=== PATIENT | male | born 1980 | race African-American/Black ===

== ENCOUNTER 2017-04-06 18:29 | Observation (INO) | payer MEDICARE, OTHER ==
[2017-04-06 19:35] LABS: PTT 33.7 SEC (22.9-36.1); Prothrombin Time 13.4 SEC (12.0-14.7)
[2017-04-06 19:39] LABS: #Lymphocytes 2.5 thou/uL (1.20-3.40); #Monocytes 0.6 thou/uL (0.11-0.59); #Neutrophils 4.7 thou/uL (1.40-6.50); %Basophils 0.2 % (0.0-1.0); %Eosinophils 0.5 % (0.0-10.0); Hematocrit 43.8 % (42.0-52.0); Mean Platelet Volume 9.7 fL (7.4-10.4); Red Blood Cell (RBC) Count 4.81 mill/uL (4.70-6.10); White Blood Cell (WBC) Count 7.9 thou/uL (4.8-10.8)
[2017-04-06 19:44] LABS: Lactic Acid - Sepsis 1.3 mmol/L (0.5-2.2)
[2017-04-06 19:51] LABS: Troponin I Less than 0.010 ng/mL (< 0.028)
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
[2017-04-06 20:15] LABS: ALT (SGPT) 32 U/L (8-55); AST (SGOT) 22 U/L (5-34); Alkaline Phosphatase 133 U/L (40-150); Anion Gap 13 mmol/L (10-20); BUN (Urea Nitrogen) 8 mg/dL (8.9-20.6); Bilirubin, Total 0.5 mg/dL (0.2-1.2); Calc. Creatinine Clearance 0 mL/min (70-130); Calcium 9.2 mg/dL (7.8-10.44); Carbon Dioxide 28 mmol/L (22-29); Chloride 101 mmol/L (98-107); Estimated GFR-MDRD Greater than 90; Protein, Total 8.1 g/dL (6.0-8.3)
[2017-04-06] MEDS ORDERED: HYDROcodone/Acetaminophen 10/325 mg Tablet ONE (21:05)
[2017-04-06] MEDS ORDERED: Dextrose 5% in Water 1,000 ML IV PRN (22:11)
[2017-04-06] MEDS ORDERED: Primidone 250 MG TAB PO SCH (22:11)
[2017-04-06] MEDS ORDERED: Ibuprofen 800 MG TAB PO PRN (22:11)
[2017-04-06] MEDS ORDERED: traMADol HCl 50 MG TAB PO PRN (22:11)
[2017-04-06] MEDS ORDERED: carBAMazepine SR 300 mg Capsule PO SCH (22:11)
[2017-04-06] MEDS ORDERED: Dextrose 50% Abboject 50 ML SYRINGE SLOW IVP PRN (22:11)
[2017-04-06] MEDS ORDERED: Ondansetron HCl/PF 4 MG/2 ML Vial IVP PRN (22:11)
[2017-04-06] MEDS ORDERED: Ondansetron ODT 4 MG TAB PO PRN (22:11)
[2017-04-06] MEDS: Acetaminophen 500 MG TAB PO SCH (22:52)
[2017-04-06] MEDS: Famotidine 20 MG TAB PO SCH (23:02)
[2017-04-07 00:16] VITALS: BMI 34.2
[2017-04-07] MEDS: Acetaminophen 500 MG TAB PO SCH ×2 (03:55→09:17)
[2017-04-07] MEDS ORDERED: Calcium Carbonate 500 MG ChewTAB PO PRN (04:13)
[2017-04-07 06:44] LABS: #Lymphocytes 1.9 thou/uL (1.20-3.40); #Monocytes 0.6 thou/uL (0.11-0.59); #Neutrophils 3.7 thou/uL (1.40-6.50); %Basophils 0.3 % (0.0-1.0); %Eosinophils 0.1 % (0.0-10.0); %Lymphocytes 30.4 % (21.0-51.0); Mean Platelet Volume 7.6 fL (7.4-10.4); Red Blood Cell (RBC) Count 4.29 mill/uL (4.70-6.10); White Blood Cell (WBC) Count 6.2 thou/uL (4.8-10.8)
[2017-04-07] MEDS ORDERED: Primidone 250 MG TAB PO SCH (07:00)
[2017-04-07] MEDS ORDERED: carBAMazepine SR 300 mg Capsule PO SCH ×2 (07:00→09:00)
[2017-04-07] MEDS ORDERED: CARBAMAZEPINE PO SCH (09:00)
[2017-04-07] MEDS: Famotidine 20 MG TAB PO SCH (09:16)
[2017-04-07] MEDS: Primidone 250 MG TAB PO SCH ×2 (09:20→12:04)
[2017-04-07 12:29] VITALS: BP 163/95; TEMP 98.6
--- OUTSIDE RECORDS SUMMARY | 2017-04-07 23:31 | XMS | Continuity of Care Document ---
:1980 Author Organization [facility] Care Team Providers Name Role Phone [facility] Primary Care Physician Unavailable Insurance Providers Payer Name Policy Number Subscriber Name Relationship MEDICARE [id number] RAZIA GLASS SELF/SAME PATIENT Advance Directives Directive Response Recorded Date/Time Advance Directive? N 11/12/15 2:34am Living Will? N 11/12/15 2:34am Health Care Proxy? N 11/12/15 2:34am Healthcare Power of Galley Boy? N 11/12/15 2:34am Is the patient an Organ Donor? N 11/12/15 2:34am Chief Complaint and Reason for Visit Reason for Visit CHEST PAIN,LEFT ARM NUMBESS Problems Active Medical Problems Problem Onset Date Recorded Date Status Seizure Unknown 02/03/14 Active Costochondral pain Unknown 04/02/14 Active Chest pain Unknown 04/11/14 Active Seizure disorder Unknown 05/23/14 Active Chest wall pain Unknown 07/16/14 Active Musculoskeletal pain Unknown 07/16/14 Active Atypical chest pain Unknown 09/15/14 Active Anterior chest wall pain Unknown 02/05/15 Active Non compliance w medication regimen Unknown 05/23/15 Active Pain due to dental caries Unknown 05/23/15 Active Seizure Unknown 06/12/15 Active Heart failure, diastolic, with acute decompensation Unknown 07/28/15 Active Pleural effusion, left Unknown 07/28/15 Active Acute kidney injury superimposed on CKD Unknown 07/28/15 Active Pleuritic chest pain Unknown 07/28/15 Active Pain, dental Unknown 10/30/15 Active Fractured tooth Unknown 10/30/15 Active Medications Current Home Medications Medication Dose Units Route Directions Days/Qty Instructions Start Date ACETAMINOPHEN/COD 1 TAB PO EVERY FOUR HOURS 20 07/28/15 300/30MG TAB NEEDED PRN (TYLENOL #3) 300 PAIN MG/30 MG TAB Amoxicillin 875 MG PO TWICE A DAY 20 10/30/15 Trihydrate (899; 2099) (Amoxicillin 875 MG TAB) 875 MG TAB Carbamazepine 900 MG PO EVERY DAY @ 0900 (CARBATROL 300 MG CAP) 300 MG CAP Carbamazepine 600 MG PO AT BEDTIME (2099) (CARBATROL 300 MG CAP) 300 MG CAP IBUPROFEN 800 MG PO EVERY EIGHT HOURS 30 07/28/15 (IBUPROFEN 800 MG NEEDED PRN TAB) 800 MG TAB PAIN AND INFLAMMATION IBUPROFEN 800 MG PO EVERY EIGHT HOURS 60 10/30/15 (IBUPROFEN 800 MG NEEDED PRN TAB) 800 MG TAB PAIN AND INFLAMMATION IBUPROFEN (MOTRIN 800 MG PO EVERY EIGHT HOURS 20 10/16/15 800 MG TAB) 800 MG NEEDED PRN TAB PAIN AND INFLAMMATION Primidone 250 MG OR THREE TIME A (PRIMIDONE) 250 MG DAY() TAB Past Home Medications Medication Directions Ordered Status Acetaminophen W/Codeine #3 EVERY FOUR HOURS PRN PAIN 04/11/14 Discontinued (Tylenol #3) 300 Mg/30 Mg Tab Tab, 1-2 Tab Po Amoxicillin Trihydrate THREE TIME A DAY() 05/23/15 Discontinued (Amoxicillin 500 Mg) 500 Mg Cap Cap, 500 Mg Po Carbamazepine (Carbatrol 200 Mg TWICE A DAY (899; 2099) 11/09/14 Discontinued Cap) 200 Mg Cap Cap, 400 Mg Po Carbamazepine (Carbatrol 200 Mg TWICE A DAY (899; 2099) 04/02/14 Discontinued Cap) 200 Mg Cap Cap, 400 Mg Or Carbamazepine (Carbatrol 300 Mg TWICE A DAY (899; 2099) Unknown Discontinued Cap) 300 Mg Cap Cap, 1,200 Mg Or Carbamazepine (Tegretol) 200 Mg GIVE DIRECTED BY PHYSICIAN 07/16/14 Discontinued Tab Tab, 200 Mg Po For seizures Carbamazepine (Tegretol) 200 Mg FOUR TIMES A DAY (899) 03/07/14 Discontinued Tab Tab, 300 Mg Or Carbamazepine (Tegretol) 200 Mg THREE TIME A DAY() 04/02/14 Discontinued Tab Tab, 2 Tab Or Cyclobenzaprine Hcl THREE TIME A DAY() 04/02/14 Discontinued (Cyclobenzaprine 5 Mg Tab) 5 Mg Tab Tab, 2 Tab Po Diazepam (Anticonvulsant) NEEDED 02/03/14 Discontinued (Diastat 20 Mg Rectal Gel) 20 Mg Gel Gel, 1 Gel Re Diazepam (Valium) 5 Mg Tab Tab, 5 EVERY EIGHT HOURS PRN CHEST 04/11/14 Discontinued Mg Po WALL PAIN Naproxen (Naproxen Dr) 500 Mg Tab TWICE A DAY (0900; 2100) PRN 05/23/15 Discontinued Tab, 500 Mg Po PAIN AND INFLAMMATION Naproxen 500MG Plain Tab EVERY 12 HOURS (,) 02/05/15 Discontinued (Naprosyn 500 Mg) 500 Mg Tab Tab, 500 Mg Po Naproxen 500MG Plain Tab TWICE A DAY (0900; 2099) 04/11/14 Discontinued (Naprosyn 500 Mg) 500 Mg Tab Tab, 500 Mg Po Naproxen Sodium (Anaprox Ds 550 EVERY DAY @ 0900 09/15/14 Discontinued Mg Tab) 550 Mg Tab Tab, 550 Mg Po Tramadol Hcl (Tramadol Hcl 50 Mg EVERY FOUR HOURS NEEDED PRN 02/05/15 Discontinued Tab) 50 Mg Tab Tab, 50-100 Mg Po PAIN Social History Problem Response Recorded Date Recreational drugs? N 10/30/15 Alcohol? N 10/30/15 Query Response Start Date Stop Date Smoking Status: Never Smoker Hospital Discharge Instructions No hospital discharge instructions. Plan of Care Discharge Date 11/12/15 Disposition LEFT WITHOUT BEING SEEN Prescriptions See Medications Section Functional Status No functional status results. Allergies, Adverse Reactions, Alerts No known allergies. Immunizations No Known History of Immunizations. Vital Signs Vital Reading Collection Date/Time Result Blood Pressure 11/12/15 4:36am 00/00 Patient Temperature 11/11/15 10:54pm 98.3 Respiratory Rate 10/16/15 1:30pm 16 Pulse Rate 11/11/15 10:54pm 83 Bedside Pulse Oximetry 11/11/15 10:54pm 96 Height 11/11/15 10:54pm 177.80 cm Height 11/11/15 10:54pm 5 ft 10.00 in Weight 11/11/15 10:54pm 104.326 kg Weight 11/11/15 10:54pm 230 lb 0.00 oz Body Mass Index 11/11/15 10:54pm 33.0 Results Laboratory Results Test Name Result Units Flags Reference Collection Result Comments Date/Time Date/Time Urine Color YELLOW YELLOW 10/16/15 10/16/15 11:45am 12:03pm Urine Appearance CLEAR CLEAR 10/16/15 10/16/15 11:45am 12:03pm Urine Glucose NEGATIVE mg/dL NEGATIVE 10/16/15 10/16/15 11:45am 12:03pm Urine Bilirubin NEGATIVE NEGATIVE 10/16/15 10/16/15 11:45am 12:03pm Urine Ketones NEGATIVE NEGATIVE 10/16/15 10/16/15 11:45am 12:03pm Urine Specific 1.025 1.002-1.03 10/16/15 10/16/15 [place] 0 11:45am 12:03pm Urine Blood NEGATIVE NEGATIVE 10/16/15 10/16/15 11:45am 12:03pm Urine pH 7.5 4.5-8.0 10/16/15 10/16/15 11:45am 12:03pm Urine Protein NEGATIVE mg/dL NEGATIVE 10/16/15 10/16/15 11:45am 12:03pm Urine Urobilinogen 0.2 E.U./d 0.2 10/16/15 10/16/15 L 11:45am 12:03pm Urine Nitrite NEGATIVE NEGATIVE 10/16/15 10/16/15 11:45am 12:03pm Urine Leukocyte NEGATIVE NEGATIVE 10/16/15 10/16/15 Esterase 11:45am 12:03pm Urine Microscopic NO NO 10/16/15 10/16/15 Indicated 11:45am 12:03pm White Blood Count 5.9 K/uL 4.8-10.8 10/16/15 10/16/15 11:00am 11:24am Red Blood Count 4.79 M/uL 4.70-6.00 10/16/15 10/16/15 11:00am 11:24am Hemoglobin 13.7 g/dL 13.5-17.5 10/16/15 10/16/15 11:00am 11:24am Hematocrit 41.0 % L 42.0-52.0 10/16/15 10/16/15 11:00am 11:24am Mean Corpuscular 85.5 fl 80.0-100.0 10/16/15 10/16/15 Volume 11:00am 11:24am Mean Corpuscular 28.6 pg 27.0-31.0 10/16/15 10/16/15 Hemoglobin 11:00am 11:24am Mean Corpuscular 33.4 g/dL 32.0-36.0 10/16/15 10/16/15 Hgb Concent Diff 11:00am 11:24am Red Cell 13.3 % 11.5-14.5 10/16/15 10/16/15 Distribution Width 11:00am 11:24am Platelet Count 243 K/uL 130-400 10/16/15 10/16/15 11:00am 11:24am Mean Platelet 8.6 fl 7.4-10.4 10/16/15 10/16/15 Volume 11:00am 11:24am Granulocytes (%) 61.8 % 50.0-75.0 10/16/15 10/16/15 11:00am 11:24am Lymphocytes % 30.4 % 20.0-40.0 10/16/15 10/16/15 11:00am 11:24am Monocytes % 7.3 % 0.0-15.0 10/16/15 10/16/15 11:00am 11:24am Eosinophils % 0.0 % 0.0-10.0 10/16/15 10/16/15 11:00am 11:24am Basophils % 0.5 % 0.0-2.0 10/16/15 10/16/15 11:00am 11:24am Granulocytes # 3.6 K/uL 1.8-6.4 10/16/15 10/16/15 11:00am 11:24am Lymphocytes # 1.8 K/uL 1.2-3.6 10/16/15 10/16/15 11:00am 11:24am Monocytes # 0.4 K/uL 0.3-0.9 10/16/15 10/16/15 11:00am 11:24am Eosinophils # 0.0 K/UL 0.0-0.5 10/16/15 10/16/15 11:00am 11:24am BASO # 0.0 K/UL 0.0-0.2 10/16/15 10/16/15 11:00am 11:24am Manual NO 10/16/15 10/16/15 Differential 11:00am 11:24am Sodium Level 138 mmol/L 135-144 10/16/15 10/16/15 11:00am 11:30am Potassium Level 3.9 mmol/L 3.5-5.1 10/16/15 10/16/15 11:00am 11:30am Chloride Level 103 mmol/L 101-111 10/16/15 10/16/15 11:00am 11:30am Carbon Dioxide 27 mmol/L 22-32 10/16/15 10/16/15 Level 11:00am 11:30am Anion Gap 11.9 mmol/L 10-20 10/16/15 10/16/15 11:00am 11:30am Random Glucose 100 mg/dL 70-109 10/16/15 10/16/15 Random glucose > 200 mg/dL in a patient with typical 11:00am 11:30am symptoms of diabetes (polydipsia, polyuria and unexplained weight loss) satisfies ADA criteria for diabetes mellitus if confirmed by repeat testing on another day. Confirmation is unnecessary when acute metabolic decompensation with hyperglycemia is manifested. Reference: Report of the Expert Committee on the Diagnosis and Classification of Diabetes Mellitus. Diabetes Care, 20:1183, 1997. Blood Urea 14 mg/dL 8-26 10/16/15 10/16/15 Nitrogen 11:00am 11:30am Creatinine 0.80 mg/dL 0.61-1.24 10/16/15 10/16/15 11:00am 11:30am EGFR Note > 60.0 10/16/15 10/16/15 eGFR (Estimated Glomerular Filtration Rate) 11:00am 11:30am Reference Range: >60 ml/min/1.73m eGFR calculation value obtained using the MDRD equation. The reportable reference ranges is recommended to be greater than 60 ml/min/1.73m. This is an estimation of the patient's GFR and clinical correlation is recommended. Calcium Level 9.1 mg/dL 8.9-10.3 10/16/15 10/16/15 11:00am 11:30am Albumin 4.3 g/dL 3.5-5.0 10/16/15 10/16/15 11:00am 11:30am Total Bilirubin 0.5 mg/dL 0.3-1.2 10/16/15 10/16/15 11:00am 11:30am Alkaline 86 IU/L 32-91 10/16/15 10/16/15 Phosphatase 11:00am 11:30am Total Protein 7.9 g/dL 6.5-8.1 10/16/15 10/16/15 11:00am 11:30am Alanine 42 IU/L 7-55 10/16/15 10/16/15 Aminotransferase 11:00am 11:30am (ALT/SGPT) Aspartate Amino 33 IU/L 15-41 10/16/15 10/16/15 Transf (AST/SGOT) 11:00am 11:30am Globulin 3.6 g/dL H 2.3-3.5 10/16/15 10/16/15 11:00am 11:30am Albumin/Globulin 1.0 L 1.2-2.2 10/16/15 10/16/15 Ratio 11:00am 11:30am Carbamazepine 7 ug/mL 4-12 10/16/15 10/16/15 (Tegretol) Level 11:00am 11:30am Procedures No Known History of Procedures. Encounters Encounter Location Arrival/Admit Date Discharge/Depart Date Attending Provider Departed [place] 11/11/15 10:34pm 11/12/15 2:34am [facility] Departed [place] 10/30/15 7:54am 10/30/15 8:29am [facility] Departed [place] 10/16/15 10:37am 10/16/15 2:09pm [facility] Encounter Diagnosis
--- OUTSIDE RECORDS SUMMARY | 2017-04-07 23:31 | XMS | Continuity of Care Document ---
:1980 Author Organization [facility] Care Team Providers Name Role Phone [facility] Primary Care Physician Unavailable Insurance Providers Payer Name Policy Number Subscriber Name Relationship MEDICARE [id number] RAZIA GLASS SELF/SAME PATIENT Advance Directives Directive Response Recorded Date/Time Advance Directive? N 10/30/15 8:03am Living Will? N 10/30/15 8:03am Health Care Proxy? N 10/30/15 8:03am Healthcare Power of Transit Mechanic? N 10/30/15 8:03am Is the patient an Organ Donor? N 10/30/15 8:03am Chief Complaint and Reason for Visit Reason for Visit DENTAL PAIN R SIDE/4 SEIZURES YESTERDAY Problems Active Medical Problems Problem Onset Date [...] (Tegretol) 200 Mg FOUR TIMES A DAY (09) 03/07/14 Discontinued Tab Tab, 300 Mg Or [...] 500 Mg Tab TWICE A DAY (0900; 2099) PRN 05/23/15 Discontinued Tab, 500 Mg Po PAIN AND INFLAMMATION Naproxen 500MG Plain Tab EVERY 12 HOURS (,) 02/05/15 Discontinued (Naprosyn 500 Mg) 500 Mg Tab Tab, 500 Mg Po Naproxen 500MG Plain Tab TWICE A DAY (00; 2099) 04/11/14 Discontinued (Naprosyn 500 Mg) 500 [...] discharge instructions. Plan of Care Discharge Date 10/30/15 Disposition HOME/SELF CARE Condition at Discharge STABLE Instructions/Education Provided DI for Fractured Tooth Forms Provided Discharge Form Prescriptions See Medications Section Referrals [facility] - Additional Instructions/Education SEE DENTIST NEXT WEEK TO HAVE TEETH PULLED. Functional Status No functional status results. Allergies, Adverse Reactions, Alerts No known allergies. Immunizations No Known History of Immunizations. Vital Signs Vital Reading Collection Date/Time Result Blood Pressure 10/30/15 8:29am 140/91 Patient Temperature 10/30/15 8:29am 98 Respiratory Rate 10/16/15 1:30pm 16 Pulse Rate 10/30/15 8:29am 82 Bedside Pulse Oximetry 10/30/15 8:29am 99 Height 10/30/15 8:01am 180.34 cm Height 10/30/15 8:01am 5 ft 11.00 in Weight 10/30/15 8:01am 104.326 kg Weight 10/30/15 8:01am 230 lb 0.00 oz Body Mass Index 10/30/15 8:01am 32.1 Results Laboratory Results Test Name Result Units Flags Reference Collection Result Comments Date/Time Date/Time Urine Color YELLOW YELLOW 10/16/15 10/16/15 11:45am 12:03pm Urine Appearance CLEAR CLEAR 10/16/15 10/16/15 11:45am 12:03pm Urine Glucose NEGATIVE mg/dL NEGATIVE 10/16/15 10/16/15 11:45am 12:03pm Urine Bilirubin NEGATIVE NEGATIVE 10/16/15 10/16/15 11:45am 12:03pm Urine Ketones NEGATIVE NEGATIVE 10/16/15 10/16/15 11:45am 12:03pm Urine Specific 1.025 1.002-1.03 10/16/15 10/16/15 [place] 0 11:45am 12:03pm Urine Blood NEGATIVE NEGATIVE [...] Arrival/Admit Date Discharge/Depart Date Attending Provider Departed [place] 10/30/15 7:54am 10/30/15 8:29am PATRICK [facility] Departed [place] 10/16/15 10:37am 10/16/15 2:09pm Prosper [facility] Encounter Diagnosis Toothache Fracture of tooth
--- OUTSIDE RECORDS SUMMARY | 2017-04-07 23:31 | XMS | Continuity of Care Document ---
:1980 Author Organization [facility] Care Team Providers Name Role Phone [facility] Primary Care Physician Unavailable Insurance Providers Payer Name Policy Number Subscriber Name Relationship MEDICARE [id number] RAZIA GLASS SELF/SAME PATIENT Advance Directives Directive Response Recorded Date/Time Advance Directive? N 10/16/15 10:48am Living Will? N 10/16/15 10:48am Health Care Proxy? N 10/16/15 10:48am Healthcare Power of Conference Concierge? N 10/16/15 10:48am Is the patient an Organ Donor? N 10/16/15 10:48am Chief Complaint and Reason for Visit Reason for Visit SEIZURE Problems Active Medical Problems Problem Onset Date [...] Active Pleuritic chest pain Unknown 07/28/15 Active Medications Current Home Medications Medication Dose Units Route Directions Days/Qty Instructions Start Date ACETAMINOPHEN/COD 1 TAB PO EVERY FOUR HOURS 20 07/28/15 300/30MG TAB NEEDED PRN (TYLENOL #3) 300 PAIN MG/30 MG TAB Carbamazepine 900 MG PO EVERY [...] (Tegretol) 200 Mg FOUR TIMES A DAY (0900) 03/07/14 Discontinued Tab Tab, 300 Mg Or [...] Dr) 500 Mg Tab TWICE A DAY (09; 2099) PRN 05/23/15 Discontinued Tab, 500 Mg Po PAIN AND INFLAMMATION Naproxen 500MG Plain Tab EVERY 12 HOURS (,) 02/05/15 Discontinued (Naprosyn 500 Mg) 500 Mg Tab Tab, 500 Mg Po Naproxen 500MG Plain Tab TWICE A DAY (0900; 2100) 04/11/14 Discontinued (Naprosyn 500 Mg) 500 Mg Tab Tab, 500 Mg Po Naproxen Sodium (Anaprox Ds 550 EVERY DAY @ 0900 09/15/14 Discontinued Mg Tab) 550 Mg Tab Tab, 550 Mg Po Tramadol Hcl (Tramadol Hcl 50 Mg EVERY FOUR HOURS NEEDED PRN 02/05/15 Discontinued Tab) 50 Mg Tab Tab, 50-100 Mg Po PAIN Social History Problem Response Recorded Date Recreational drugs? N 07/28/15 Alcohol? N 07/28/15 Query Response Start Date Stop Date Smoking Status: Never Smoker Hospital Discharge Instructions No hospital discharge instructions. Plan of Care Discharge Date 10/16/15 Disposition HOME/SELF CARE Condition at Discharge STABLE Instructions/Education Provided Seizure Disorder -- Adult Forms Provided Discharge Form Prescriptions See Medications Section Referrals [facility] - Additional Instructions/Education FOLLOW UP WITH NEUROLOGIST 1-2 DAYS, CALL FOR APPOINTMENT. Functional Status No functional status results. Allergies, Adverse Reactions, Alerts No known allergies. Immunizations No Known History of Immunizations. Vital Signs Vital Reading Collection Date/Time Result Blood Pressure 10/16/15 2:09pm 155/88 Patient Temperature 10/16/15 10:40am 98.3 Respiratory Rate 10/16/15 1:30pm 16 Pulse Rate 10/16/15 2:09pm 86 Bedside Pulse Oximetry 10/16/15 2:09pm 97 Height 10/16/15 10:40am 177.80 cm Height 10/16/15 10:40am 5 ft 10.00 in Weight 10/16/15 10:40am 106.594 kg Weight 10/16/15 10:40am 235 lb 0.00 oz Body Mass Index 10/16/15 10:40am 33.7 Blood Pressure Source 07/28/15 10:45am Auto Cuff Temperature Source 07/28/15 10:45am Tympanic Pulse Location 07/28/15 10:45am Monitor Results Laboratory Results Test Name Result Units Flags Reference Collection Result Comments Date/Time Date/Time Urine Color YELLOW YELLOW 10/16/15 10/16/15 11:45am 12:03pm Urine Appearance CLEAR CLEAR 10/16/15 10/16/15 11:45am 12:03pm Urine Glucose NEGATIVE mg/dL NEGATIVE 10/16/15 10/16/15 11:45am 12:03pm Urine Bilirubin NEGATIVE NEGATIVE 10/16/15 10/16/15 11:45am 12:03pm Urine Ketones NEGATIVE NEGATIVE 10/16/15 10/16/15 11:45am 12:03pm Urine Specific 1.025 1.002-1.03 10/16/15 10/16/15 [place] 0 11:45am 12:03pm Urine Blood NEGATIVE NEGATIVE [...] 4-12 10/16/15 10/16/15 (Tegretol) Level 11:00am 11:30am White Blood Count 4.9 K/uL 4.8-10.8 07/28/15 07/28/15 8:50am 9:17am Red Blood Count 4.73 M/uL 4.70-6.00 07/28/15 07/28/15 8:50am 9:17am Hemoglobin 13.4 g/dL L 13.5-17.5 07/28/15 07/28/15 8:50am 9:17am Hematocrit 40.7 % L 42.0-52.0 07/28/15 07/28/15 8:50am 9:17am Mean Corpuscular 86.0 fl 80.0-100.0 07/28/15 07/28/15 Volume 8:50am 9:17am Mean Corpuscular 28.4 pg 27.0-31.0 07/28/15 07/28/15 Hemoglobin 8:50am 9:17am Mean Corpuscular 33.0 g/dL 32.0-36.0 07/28/15 07/28/15 Hgb Concent Diff 8:50am 9:17am Red Cell 13.3 % 11.5-14.5 07/28/15 07/28/15 Distribution Width 8:50am 9:17am Platelet Count 235 K/uL 130-400 07/28/15 07/28/15 8:50am 9:17am Mean Platelet 8.3 fl 7.4-10.4 07/28/15 07/28/15 Volume 8:50am 9:17am Granulocytes (%) 54.2 % 50.0-75.0 07/28/15 07/28/15 8:50am 9:17am Lymphocytes % 38.5 % 20.0-40.0 07/28/15 07/28/15 8:50am 9:17am Monocytes % 6.7 % 0.0-15.0 07/28/15 07/28/15 8:50am 9:17am Eosinophils % 0.0 % 0.0-10.0 07/28/15 07/28/15 8:50am 9:17am Basophils % 0.6 % 0.0-2.0 07/28/15 07/28/15 8:50am 9:17am Granulocytes # 2.7 K/uL 1.8-6.4 07/28/15 07/28/15 8:50am 9:17am Lymphocytes # 1.9 K/uL 1.2-3.6 07/28/15 07/28/15 8:50am 9:17am Monocytes # 0.3 K/uL 0.3-0.9 07/28/15 07/28/15 8:50am 9:17am Eosinophils # 0.0 K/UL 0.0-0.5 07/28/15 07/28/15 8:50am 9:17am BASO # 0.0 K/UL 0.0-0.2 07/28/15 07/28/15 8:50am 9:17am Manual NO 07/28/15 07/28/15 Differential 8:50am 9:17am Sodium Level 138 mmol/L 135-144 07/28/15 07/28/15 8:50am 9:27am Potassium Level 3.8 mmol/L 3.5-5.1 07/28/15 07/28/15 8:50am 9:27am Chloride Level 106 mmol/L 101-111 07/28/15 07/28/15 8:50am 9:27am Carbon Dioxide 27 mmol/L 22-32 07/28/15 07/28/15 Level 8:50am 9:27am Anion Gap 8.8 mmol/L L 10-20 07/28/15 07/28/15 8:50am 9:27am Random Glucose 101 mg/dL 70-109 07/28/15 07/28/15 Random glucose > 200 mg/dL in a patient with typical 8:50am 9:27am symptoms of diabetes (polydipsia, polyuria and unexplained weight loss) satisfies ADA criteria for diabetes mellitus if confirmed by repeat testing on another day. Confirmation is unnecessary when acute metabolic decompensation with hyperglycemia is manifested. Reference: Report of the Expert Committee on the Diagnosis and Classification of Diabetes Mellitus. Diabetes Care, 20:1183, 1996. Blood Urea 12 mg/dL 8-07/28/15 07/28/15 Nitrogen 8:50am 9:27am Creatinine 0.80 mg/dL 0.61-1.24 07/28/15 07/28/15 8:50am 9:27am EGFR Note > 60.0 07/28/15 07/28/15 eGFR (Estimated Glomerular Filtration Rate) 8:50am 9:27am Reference Range: >60 ml/min/1.73m eGFR calculation value obtained using the MDRD equation. The reportable reference ranges is recommended to be greater than 60 ml/min/1.73m. This is an estimation of the patient's GFR and clinical correlation is recommended. Calcium Level 8.7 mg/dL L 8.9-10.3 07/28/15 07/28/15 8:50am 9:27am Albumin 3.9 g/dL 3.5-5.0 07/28/15 07/28/15 8:50am 9:27am Total Bilirubin 0.4 mg/dL 0.3-1.2 07/28/15 07/28/15 8:50am 9:27am Alkaline 73 IU/L 32-91 07/28/15 07/28/15 Phosphatase 8:50am 9:27am Total Protein 7.5 g/dL 6.5-8.1 07/28/15 07/28/15 8:50am 9:27am Alanine 29 IU/L 7-55 07/28/15 07/28/15 Aminotransferase 8:50am 9:27am (ALT/SGPT) Aspartate Amino 25 IU/L 15-41 07/28/15 07/28/15 Transf (AST/SGOT) 8:50am 9:27am Globulin 3.6 g/dL H 2.3-3.5 07/28/15 07/28/15 8:50am 9:27am Albumin/Globulin 1.0 L 1.2-2.2 07/28/15 07/28/15 Ratio 8:50am 9:27am Creatine Kinase 225 IU/L 49-397 07/28/15 07/28/15 8:50am 9:27am Creatine Kinase MB 1.2 ng/ML 0.6-6.3 07/28/15 07/28/15 8:50am 9:27am Troponin I < 0.01 ng/mL 0.00-0.03 07/28/15 07/28/15 8:50am 9:27am Troponin I-Interpretation Reference : <0.03 ng/mL NEGATIVE 0.04 - 0.49 ng/mL EQUIVOCAL =OR > 0.5 ng/mL CONSISTENT WITH ACUTE MYOCARDIAL INJURY 98% of confirmed AMI patients will have at least one value in a set or serial specimens >0.50 ng/ml. 99% of normals are between 0.0 - 0.10 ng/ml. Serial samples on a patient that are all <0.10 ng/ml effectively rules out AMI. Persistently increased troponin I values that are above the upper limit of normal but below the threshold for AMI indicate mycardial injury but not necessarily an ischemic mechanism of injury. Troponin Important Points 1. Troponin is specific for myocardial injury but not for AMI. Elevated troponin levels above the upper limit of normal but below the AMI cutoff may be present in cardiac injury other then AMI and represent some degree of risk. 2. Elevated troponin levels inconsistent with patient history or clinical condition should be considered a sign to investigate for other cardiac conditions. 3. Serial sampling is critical for accurate diagnosis. Myoglobin 15 ug/mL L 17.4-106.0 07/28/15 07/28/15 8:50am 9:27am Procedures No Known History of Procedures. Encounters Encounter Location Arrival/Admit Date Discharge/Depart Date Attending Provider Departed [place] 10/16/15 10:37am 10/16/15 2:09pm [facility] Departed [place] 07/28/15 8:15am 07/28/15 10:56am [facility] Encounter Diagnosis Seizure disorder
--- OUTSIDE RECORDS SUMMARY | 2017-04-07 23:32 | XMS | Continuity of Care Document ---
:[address] [facility] Care Team Providers Name Role Phone [facility] Primary Care Physician Unavailable Insurance Providers Payer Name Policy Number Subscriber Name Relationship MEDICARE [id number] RAZIA GLASS SELF/SAME PATIENT Advance Directives Directive Response Recorded Date/Time Advance Directive? N 03/07/16 2:27am Living Will? N 03/07/16 2:27am Health Care Proxy? N 03/07/16 2:27am Healthcare Power of Managed Services Sales Consultant? N 03/07/16 2:27am Is the patient an Organ Donor? N 03/07/16 2:27am Chief Complaint and Reason for Visit Reason for Visit SEIZURES,RX REFILL Problems Active Medical Problems Problem Onset Date [...] 10/30/15 Active Fractured tooth Unknown 10/30/15 Active Elevated transaminase level Unknown 11/21/15 Active Medication refill Unknown 03/06/16 Active Medications Current Home Medications Medication Dose Units Route Directions Days/Qty Instructions Start Date ACETAMINOPHEN 1 TAB PO EVERY SIX HOURS 30 PRN SEVERE PAIN 11/22/15 W/CODEINE #3 NEEDED PRN (TYLENOL #3) 300 MG/30 MG TAB Carbamazepine 300 MG PO EVERY DAY @ 0900 30 03/06/16 (CARBAMAZEPINE ER 100 MG CAP) 100 MG CAP Carbamazepine 900 MG PO EVERY DAY @ 0900 (CARBATROL 300 MG CAP) 300 MG CAP Carbamazepine 600 MG PO AT BEDTIME (CARBATROL 300 MG (2099) CAP) 300 MG CAP DIAZEPAM (DIAZEPAM 10 MG PO TWICE DAILY 30 PRN ANXIETY/ 11/22/15 10 MG TAB) 10 MG NEEDED PRN INSOMNIA TAB IBUPROFEN 800 MG PO EVERY EIGHT 30 07/28/15 (IBUPROFEN 800 MG HOURS NEEDED TAB) 800 MG TAB PRN PAIN AND INFLAMMATION Primidone 250 MG OR THREE TIME A (PRIMIDONE 250 MG DAY() TAB) 250 MG TAB Primidone 250 MG PO THREE TIME A 30 03/06/16 (PRIMIDONE 250 MG DAY() TAB) 250 MG TAB Past Home Medications Medication Directions Ordered Status Acetaminophen W/Codeine #3 EVERY FOUR HOURS PRN PAIN 04/11/14 Discontinued (Tylenol #3) 300 Mg/30 Mg Tab Tab, 1-2 Tab Po Acetaminophen/Cod 300/30MG Tab EVERY FOUR HOURS NEEDED PRN 07/28/15 Discontinued (Tylenol #3) 300 Mg/30 Mg Tab PAIN Tab, 1 Tab Po Amoxicillin Trihydrate THREE TIME A DAY() 05/23/15 Discontinued (Amoxicillin 500 Mg) 500 Mg Cap Cap, 500 Mg Po Amoxicillin Trihydrate TWICE A DAY (899; 2099) 10/30/15 Discontinued (Amoxicillin 875 Mg Tab) 875 Mg Tab Tab, 875 Mg Po Carbamazepine (Carbatrol 200 Mg TWICE [...] Carbamazepine (Tegretol) 200 Mg THREE TIME A DAY(;;) 04/02/14 Discontinued Tab Tab, 2 Tab Or Cyclobenzaprine Hcl THREE TIME A DAY(;;) 04/02/14 Discontinued (Cyclobenzaprine 5 Mg Tab) 5 Mg Tab Tab, 2 Tab Po Diazepam (Anticonvulsant) NEEDED 02/03/14 Discontinued (Diastat 20 Mg Rectal Gel) 20 Mg Gel Gel, 1 Gel Re Diazepam (Valium) 5 Mg Tab Tab, 5 EVERY EIGHT HOURS PRN CHEST 04/11/14 Discontinued Mg Po WALL PAIN Ibuprofen (Ibuprofen 800 Mg Tab) EVERY EIGHT HOURS NEEDED 10/30/15 Discontinued 800 Mg Tab Tab, 800 Mg Po PRN PAIN AND INFLAMMATION Ibuprofen (Motrin 800 Mg Tab) 800 EVERY EIGHT HOURS NEEDED 10/16/15 Discontinued Mg Tab Tab, 800 Mg Po PRN PAIN AND INFLAMMATION Naproxen (Naproxen Dr 500 Mg Tab) TWICE A DAY (0900; 2100) PRN 05/23/15 Discontinued 500 Mg Tab Tab, 500 Mg Po PAIN AND INFLAMMATION Naproxen 500MG Plain Tab EVERY 12 HOURS () 02/05/15 Discontinued (Naprosyn 500 Mg Tab) 500 Mg Tab Tab, 500 Mg Po Naproxen 500MG Plain Tab TWICE A DAY (0900; 2100) 04/11/14 Discontinued (Naprosyn 500 Mg Tab) 500 Mg Tab Tab, 500 Mg Po Naproxen Sodium (Anaprox Ds 550 EVERY DAY @ 0900 09/15/14 Discontinued Mg Tab) 550 Mg Tab Tab, 550 Mg Po Tramadol Hcl (Tramadol Hcl 50 Mg EVERY FOUR HOURS NEEDED PRN 02/05/15 Discontinued Tab) 50 Mg Tab Tab, 50-100 Mg Po PAIN Social History Problem Response Recorded Date Recreational drugs? N 11/21/15 Alcohol? N 11/21/15 Query Response Start Date Stop Date Smoking Status: Unknown Hospital Discharge Instructions No hospital discharge instructions. Plan of Care Discharge Date 03/06/16 Disposition HOME/SELF CARE Condition at Discharge STABLE Instructions/Education Provided Seizure Disorder -- Adult Forms Provided Discharge Form Prescriptions See Medications Section Referrals [facility] - Additional Instructions/Education Plesae set up follow up with a PCP in [facility] Functional Status No functional status results. Allergies, Adverse Reactions, Alerts No known allergies. Immunizations No Known History of Immunizations. Vital Signs Vital Reading Collection Date/Time Result Blood Pressure 03/06/16 11:29pm 153/91 Patient Temperature 03/06/16 11:29pm 98.1 Temperature Source 03/06/16 9:47pm Tympanic Respiratory Rate 11/22/15 12:16pm 20 Pulse Rate 03/06/16 11:29pm 83 Bedside Pulse Oximetry 03/06/16 11:29pm 98 Height 03/06/16 9:47pm 177.80 cm Height 03/06/16 9:47pm 5 ft 10.00 in Weight 03/06/16 9:47pm 108.862 kg Weight 03/06/16 9:47pm 240 lb 0.00 oz Body Mass Index 03/06/16 9:47pm 34.4 Results No known relevant diagnostic tests, laboratory data and/or discharge summary. Procedures No Known History of Procedures. Encounters Encounter Location Arrival/Admit Date Discharge/Depart Date Attending Provider Departed [place] 03/06/16 9:33pm 03/06/16 11:29pm Jose Angel [facility] Encounter Diagnosis Encounter for medication refill Seizure disorder
--- OUTSIDE RECORDS SUMMARY | 2017-04-07 23:32 | XMS | Continuity of Care Document ---
:1980 Author Organization [facility] Care Team Providers Name Role Phone CHARLIE ARIAS Primary Care Physician Unavailable Insurance Providers Payer Name Policy Number Subscriber Name Relationship MEDICARE [id number] RAZIA GLASS SELF/SAME PATIENT Advance Directives Directive Response Recorded Date/Time Advance Directive? N 08/31/16 9:10pm Living Will? N 08/31/16 9:10pm Health Care Proxy? N 08/31/16 9:10pm Healthcare Power of Director Of Exhibit Development? N 08/31/16 9:10pm Is the patient an Organ Donor? N 08/31/16 9:10pm Chief Complaint and Reason for Visit Reason [...] SEVERE PAIN 11/22/15 W/CODEINE #3 NEEDED PRN (TYLENOL/CODEINE #3 TAB) 300 MG/30 MG TAB CYCLOBENZAPRINE HCL 10 MG PO AT BEDTIME 14 06/20/16 (CYCLOBENZAPRINE 10 (2100) MG TAB) 10 MG TAB Carbamazepine 900 MG PO TWICE A DAY 42 05/11/16 (Antipsychotic) (899; 2099) (EQUETRO 300 MG CAP) 300 MG CAP Carbamazepine 300 MG PO EVERY DAY @ 0900 30 03/06/16 (CARBAMAZEPINE ER 100 MG CAP) 100 MG CAP Carbamazepine 900 MG PO EVERY DAY @ 0900 (CARBATROL 300 MG CAP) 300 MG CAP Carbamazepine 600 MG PO AT BEDTIME (CARBATROL 300 MG (2099) CAP) 300 MG CAP DIAZEPAM (DIAZEPAM 10 MG PO TWICE DAILY 30 PRN ANXIETY/ 11/22/15 10 MG TAB) 10 MG TAB NEEDED PRN INSOMNIA IBUPROFEN (IBUPROFEN 800 MG PO EVERY EIGHT 30 07/28/15 800 MG TAB) 800 MG HOURS NEEDED TAB PRN PAIN AND INFLAMMATION IBUPROFEN (MOTRIN 800 MG PO EVERY EIGHT 08/31/16 800 MG TAB) 800 MG HOURS NEEDED TAB PRN PAIN AND INFLAMMATION Primidone (MYSOLINE 250 MG PO THREE TIME A 05/25/16 250 MG TAB) 250 MG DAY() TAB Primidone (PRIMIDONE 250 MG OR THREE TIME A 250 MG TAB) 250 MG DAY() TAB Primidone (PRIMIDONE 250 MG PO THREE TIME A 03/06/16 250 MG TAB) 250 MG DAY() TAB Primidone (PRIMIDONE 250 MG PO THREE TIME A 05/11/16 250 MG TAB) 250 MG DAY() TAB SULFAMETHOXAZOLE 1 TAB PO TWICE A DAY 08/31/16 W/TRIMETHOPRI (899; 2099) For (SMZ-TMP DS 800 CELLULITIS MG/160 MG TAB) 800 MG/160 MG TAB TRAMADOL HCL 50 MG PO EVERY SIX HOURS 10 08/31/16 (TRAMADOL HCL 50 MG NEEDED PRN TAB) 50 MG TAB SEVERE PAIN Past Home Medications Medication Directions Ordered Status Acetaminophen W/Codeine #3 EVERY FOUR HOURS PRN PAIN 04/11/14 Discontinued (Tylenol/Codeine #3 Tab) 300 Mg/30 Mg Tab Tab, 1-2 Tab Po Acetaminophen/Cod 300/30MG Tab EVERY FOUR HOURS NEEDED PRN 07/28/15 Discontinued (Tylenol #3) 300 Mg/30 Mg Tab PAIN Tab, 1 Tab Po Amoxicillin Trihydrate THREE TIME A DAY(;) 05/23/15 Discontinued (Amoxicillin 500 Mg) 500 Mg [...] Mg Cap Cap, 1,200 Mg Or Carbamazepine (Tegretol 200 Mg GIVE DIRECTED BY PHYSICIAN 07/16/14 Discontinued Tab) 200 Mg Tab Tab, 200 Mg Po For seizures Carbamazepine (Tegretol 200 Mg FOUR TIMES A DAY (0900) 03/07/14 Discontinued Tab) 200 Mg Tab Tab, 300 Mg Or Carbamazepine (Tegretol 200 Mg THREE TIME A DAY() 04/02/14 Discontinued Tab) 200 Mg Tab Tab, 2 Tab Or Cyclobenzaprine Hcl THREE TIME A DAY() 04/02/14 Discontinued (Cyclobenzaprine 5 Mg Tab) 5 Mg Tab Diazepam (Anticonvulsant) NEEDED 02/03/14 Discontinued (Diastat 20 [...] Dr 500 Mg Tab) TWICE A DAY (899; 2099) PRN 05/23/15 Discontinued 500 Mg Tab Tab, 500 Mg Po PAIN AND INFLAMMATION Naproxen 500MG Plain Tab EVERY 12 HOURS (,) 02/05/15 Discontinued (Naprosyn 500 Mg Tab) 500 [...] Problem Response Recorded Date Recreational drugs? N 08/31/16 Alcohol? N 08/31/16 Query Response Start Date Stop Date Smoking Status: Never Smoker Hospital Discharge Instructions No hospital discharge instructions. Plan of Care Discharge Date 08/31/16 Disposition HOME/SELF CARE Condition at Discharge STABLE Instructions/Education Provided DI for Cellulitis -- Adult Forms Provided Discharge Form Prescriptions See Medications Section Referrals CHARLIE ARIAS - Additional Instructions/Education MAKE APPOINTMENT TOMORROW TO BE SEEN BY YOUR DOCTOR IN THE NEXT 3-4 DAYS FOR A WOUND CHECK. TAKE ALL ANTIBIOTICS UNTIL GONE. RETURN TO ED IF CELLULITIS WORSENS OR YOU ARE UNABLE TO TAKE MEDICATIONS. Functional Status No functional status results. Allergies, Adverse Reactions, Alerts No known allergies. Immunizations No Known History of Immunizations. Vital Signs Vital Reading Collection Date/Time Result Blood Pressure 08/31/16 10:14pm 166/97 Patient Temperature 08/31/16 10:14pm 98.9 Temperature Source 08/31/16 8:36pm Oral Respiratory Rate 08/31/16 10:11pm 18 Pulse Rate 08/31/16 10:14pm 89 Bedside Pulse Oximetry 08/31/16 10:14pm 97 Height 08/31/16 8:36pm 180.34 cm Height 08/31/16 8:36pm 5 ft 11.00 in Weight 08/31/16 8:36pm 111.130 kg Weight 08/31/16 8:36pm 245 lb 00.00 oz Body Mass Index 08/31/16 8:36pm 34.2 Results Laboratory Results Test Name Result Units Flags Reference Collection Result Comments Date/Time Date/Time White Blood 5.7 K/uL 4.8-10.8 07/19/16 07/19/16 Count 2:10pm 2:35pm Red Blood 4.75 M/uL 4.70-6.00 07/19/16 07/19/16 Count 2:10pm 2:35pm Hemoglobin 13.4 g/dL L 13.5-17.5 07/19/16 07/19/16 2:10pm 2:35pm Hematocrit 40.4 % L 42.0-52.0 07/19/16 07/19/16 2:10pm 2:35pm Mean 85.1 fl 80.0-100.0 07/19/16 07/19/16 Corpuscular 2:10pm 2:35pm Volume Mean 28.2 pg 27.0-31.0 07/19/16 07/19/16 Corpuscular 2:10pm 2:35pm Hemoglobin Mean 33.2 g/dL 32.0-36.0 07/19/16 07/19/16 Corpuscular 2:10pm 2:35pm Hgb Concent Diff Red Cell 13.1 % 11.5-14.5 07/19/16 07/19/16 Distribution 2:10pm 2:35pm Width Platelet 287 K/uL 130-400 07/19/16 07/19/16 Count 2:10pm 2:35pm Mean Platelet 8.2 fl 07/19/16 07/19/16 Volume 2:10pm 2:35pm Granulocytes 56.8 % 50.0-75.0 07/19/16 07/19/16 (%) 2:10pm 2:35pm Lymphocytes % 36.3 % 20.0-40.0 07/19/16 07/19/16 2:10pm 2:35pm Monocytes % 6.1 % 0.0-15.0 07/19/16 07/19/16 2:10pm 2:35pm Eosinophils % 0.1 % 0.0-10.0 07/19/16 07/19/16 2:10pm 2:35pm Basophils % 0.7 % 0.0-2.0 07/19/16 07/19/16 2:10pm 2:35pm Granulocytes 3.2 K/uL 1.8-6.4 07/19/16 07/19/16 # 2:10pm 2:35pm Lymphocytes # 2.1 K/uL 1.2-3.6 07/19/16 07/19/16 2:10pm 2:35pm Monocytes # 0.3 K/uL 0.3-0.9 07/19/16 07/19/16 2:10pm 2:35pm Eosinophils # 0.0 K/ul 0.0-0.5 07/19/16 07/19/16 2:10pm 2:35pm BASO # 0.0 K/uL 0.0-0.2 07/19/16 07/19/16 2:10pm 2:35pm Manual NO 07/19/16 07/19/16 Differential 2:10pm 2:35pm Erythrocyte 51 mm/hr H 0-15 07/19/16 07/19/16 Sedimentation 2:10pm 3:02pm Rate Hemoglobin 5.7 % 4.0-6.0 07/19/16 07/19/16 Elevated levels of HbA1c suggest the need for more A1c Percent 2:10pm 2:32pm aggresssive treatment of glycemia. The [place] [employer] recommends that a primary goal of therapy should be a HbA1c of <7% and that physicians should reevaluate the treatment regimen in patients with HbA1c values consistently >8%. N/A 117 mg/dL 07/19/16 07/19/16 A1C Result% Estimated Avg.Glucose ( EAG) 2:10pm 2:32pm 6.0% 126 mg/dL 6.5% 140 mg/dL 7.0% 154 mg/dL 7.5% 169 mg/dL 8.0% 183 mg/dL 8.5% 197 mg/dL 9.0% 212 mg/dL 9.5% 226 mg/dL 10.0% 240 mg/dL Reference: jerome Lewis al, Diabetes Care 31: 1437, 2008. Primidone 1.0 ug/mL L 5.0-12.0 07/19/16 07/22/16 Detection Limit=0.3 (Mysoline) 2:10pm 8:26am <0.3 indicates None Detected Level Phenobarbital 12 ug/mL L 15-40 07/19/16 07/22/16 Detection Limit=3 Level 2:10pm 8:26am Performed at: [facility] [id number] Grinding Machine Operator Portable: Luis M Petty MD, Phone: [phone] D-Dimer 257 ng/mL H 0-200 07/19/16 07/19/16 The 99-100% NPV (Negative Predictive Value) for DVT/PE 1:52pm 3:17pm exclusion is <230 ng/mL as suggested by the foreign broadcast specialist and as approved by the FDA. Clinical correlation is needed. N/A CALCULATE 07/19/16 07/19/16 CORONARY HEART DISEASE (CHD) RISK FACTORS: BELOW 1:52pm 3:04pm +1, Age (y): Men, >45 Women, >55 or Premature Menopause Without Estrogen Therapy +1, Family History of Premature CHD +1, Current Cigarette Smoking +1, Hypertension +1, Low HDL-C: <40 mg/dL -1, High HDL-C: 60 mg/dL or More Total RFs CHD Risk Equivalents (REq): Diabetes Other Forms of Atherosclerotic Disease Lipid testing of hospitalized patients may be inaccurate due to fluctuations from the patients normal metabolic state. Accurate triglyceride and LDL testing requires a fasting specimen. If non-fasting cholesterol > sv=885 mg/dL or HDL is < 40 mg/dL, fasting lipid panel is recommended. Repeat testing recommended prior to treatment. Desirable Levels Cholesterol 246 mg/dL H 0-200 07/19/16 07/19/16 Level 1:52pm 5:04pm Triglycerides 84 mg/dL 10-150 07/19/16 07/19/16 Normal triglycerides: <150 mg/dL Level 1:52pm 5:04pm Borderline-high triglycerides: 150-199 mg/dL High triglycerides: 200-499 mg/dL Very high triglycerides: > fa=233 mg/dL HDL 60 mg/dL 40-130 07/19/16 07/19/16 Cholesterol 1:52pm 5:04pm N/A 4.1 0.0-5.0 07/19/16 07/19/16 1:52pm 5:04pm LDL 141 mg/dL H 0-130 07/19/16 07/19/16 *LDL Cholesterol <130 mg/dL, No CHD or CHD Risk Equivalent Cholesterol 1:52pm 5:04pm <100 mg/dL, With CHD or CHD Risk Equivalent (Measured) LDL Cholesterol Therapeutic Goal: 100 mg/dL or Less if CHD or CHD Risk Equivalent Present <130 mg/dL if No CHD or REq; 2 or more Risk Factors <160 mg/dL if No CHD or REq; 0-1 Risk Factors Reference: ATP III, MARYLU, 285:19, 4623-10, 2000. Sodium Level 138 mmol/L 135-144 07/19/16 07/19/16 1:52pm 5:04pm Potassium 4.1 mmol/L 3.5-5.1 07/19/16 07/19/16 Level 1:52pm 5:04pm Chloride 102 mmol/L 101-111 07/19/16 07/19/16 Level 1:52pm 5:04pm Carbon 29 mmol/L 22-32 07/19/16 07/19/16 Dioxide Level 1:52pm 5:04pm Anion Gap 11.1 mmol/L 10-20 07/19/16 07/19/16 1:52pm 5:04pm Glucose Level 86 mg/dL 70-109 07/19/16 07/19/16 Random glucose > 200 mg /dL in a patient with typical 1:52pm 5:04pm symptoms of diabetes (polydipsia, polyuria and unexplained weight loss) satisfies ADA criteria for diabetes mellitus if confirmed by repeat testing on another day. Confirmation is unnecessary when acute metabolic decompensation with hyperglycemia is manifested. Reference: Report of the Expert Committee on the Diagnosis and Classification of Diabetes Mellitus. Diabetes Care, 20:1183, 1997. Blood Urea 13 mg/dL 8-26 07/19/16 07/19/16 Nitrogen 1:52pm 5:04pm Creatinine 0.90 mg/dL 0.61-1.24 07/19/16 07/19/16 1:52pm 5:04pm EGFR Note > 60.0 07/19/16 07/19/16 eGFR (Estimated Glomerular Filtration Rate) 1:52pm 5:04pm Reference Range: >60 ml/min/1.73m eGFR calculation value obtained using the [facility] Quadratic (MCQ) equation. The reportable reference range is recommended to be greater than 60 ml/min/1.73m. This is an estimation of the patient's GFR and clinical correlation is recommended. This eGFR calculation does not account for race. This result may differ from other equations available. Uric Acid 7.2 mg/dL 4.8-8.7 07/19/16 07/19/16 1:52pm 5:04pm Calcium Level 9.3 mg/dL 8.9-10.3 07/19/16 07/19/16 1:52pm 5:04pm Magnesium 2.0 mg/dL 1.8-2.5 07/19/16 07/19/16 Level 1:52pm 5:04pm Albumin 4.3 g/dL 3.5-5.0 07/19/16 07/19/16 1:52pm 5:04pm Total 0.3 mg/dL 0.3-1.2 07/19/16 07/19/16 Bilirubin 1:52pm 5:04pm Alkaline 90 IU/L 32-91 07/19/16 07/19/16 Phosphatase 1:52pm 5:04pm Total Protein 9.0 g/dL H 6.5-8.1 07/19/16 07/19/16 1:52pm 5:04pm Alanine 37 IU/L 7-55 07/19/16 07/19/16 Aminotransfer 1:52pm 5:04pm ase (ALT/SGPT) Aspartate 27 IU/L 15-41 07/19/16 07/19/16 Amino Transf 1:52pm 5:04pm (AST/SGOT) Globulin 4.7 g/dL H 2.3-3.5 07/19/16 07/19/16 1:52pm 5:04pm Albumin/Globu 0.9 L 1.2-2.2 07/19/16 07/19/16 sha Ratio 1:52pm 5:04pm Vitamin D 18 NG/ML L 30-100 07/19/16 07/19/16 VITAMIN D STATUS 25(OH ) VITAMIN D 25-Hydroxy 1:52pm 5:04pm CONCENTRATION RANGE (ng/mL) Deficient <20 ng/mL Insufficient 20 to <30 ng/mL Sufficient 30 - 100 ng/mL Upper Safety Limit >100 ng/mL Falsely elevated results may occur in patients being treated with Paricalcitol (Zemplar). Vitamin D levels should not be tested in patients who have received Paricalcitol within 24 hours of obtaining the samle. For assays employing antibodies, the possibility exists for interference by heterophile antibodies in the patient sample. Patients who have been regularly exposed to animals or have received immunotherapy or diagnostic procedures utilizing immunoglobulins or immunoglobulin fragments may produce antibodies, e.g. HAMA, that interfere with immunoassays. Additionally, other heterophile antibodies (e.g. human anti-sheep antibodies) may be present in patient samples. Such interfering antibodies may cause erroneous results. Carefully evaluate the results of patients suspected of having these antibodies. The Access 25(OH) Vitamin D Total results should be interpreted in light of the total clinical presentation of the patient, including symptoms, clinical history, data from additional tests, and other appropriate information. C-Reactive 3.2 MG/DL H 0.0-1.0 07/19/16 07/19/16 Protein 1:52pm 5:04pm Free 0.52 ng/mL L 0.61-1.12 07/19/16 07/19/16 Thyroxine 1:52pm 5:04pm Carbamazepine 9 ug/mL 4-12 07/19/16 07/19/16 (Tegretol) 1:52pm 5:04pm Level Thyroid 0.59 uIU/mL 0.34-5.6 07/19/16 07/19/16 Stimulating 1:52pm 5:04pm Hormone (TSH) Carbamazepine 8 ug/mL 4-12 06/22/16 06/22/16 (Tegretol) 1:15pm 1:48pm Level D-Dimer 270 ng/mL H 0-200 06/20/16 06/20/16 The 99-100% NPV (Negative Predictive Value) for DVT/PE 6:50am 7:59am exclusion is <230 ng/mL as suggested by the foreign broadcast specialist and as approved by the FDA. Clinical correlation is needed. White Blood 7.2 K/uL 4.8-10.8 06/20/16 06/20/16 Count 6:00pm 6:07am Red Blood 5.49 M/uL 4.70-6.00 06/20/16 06/20/16 Count 6:00pm 6:07am Hemoglobin 15.8 g/dL 13.5-17.5 06/20/16 06/20/16 6:00pm 6:07am Hematocrit 46.7 % 42.0-52.0 06/20/16 06/20/16 6:00pm 6:07am Mean 85.1 fl 80.0-100.0 06/20/16 06/20/16 Corpuscular 6:00pm 6:07am Volume Mean 28.7 pg 27.0-31.0 06/20/16 06/20/16 Corpuscular 6:00pm 6:07am Hemoglobin Mean 33.8 g/dL 32.0-36.0 06/20/16 06/20/16 Corpuscular 6:00pm 6:07am Hgb Concent Diff Red Cell 13.2 % 11.5-14.5 06/20/16 06/20/16 Distribution 6:00pm 6:07am Width Platelet 284 K/uL 130-400 06/20/16 06/20/16 Count 6:00pm 6:07am Mean Platelet 8.9 fl 06/20/16 06/20/16 Volume 6:00pm 6:07am Granulocytes 54.4 % 50.0-75.0 06/20/16 06/20/16 (%) 6:00pm 6:07am Lymphocytes % 37.1 % 20.0-40.0 06/20/16 06/20/16 6:00pm 6:07am Monocytes % 7.5 % 0.0-15.0 06/20/16 06/20/16 6:00pm 6:07am Eosinophils % 0.1 % 0.0-10.0 06/20/16 06/20/16 6:00pm 6:07am Basophils % 0.9 % 0.0-2.0 06/20/16 06/20/16 6:00pm 6:07am Granulocytes 3.9 K/uL 1.8-6.4 06/20/16 06/20/16 # 6:00pm 6:07am Lymphocytes # 2.7 K/uL 1.2-3.6 06/20/16 06/20/16 6:00pm 6:07am Monocytes # 0.5 K/uL 0.3-0.9 06/20/16 06/20/16 6:00pm 6:07am Eosinophils # 0.0 K/ul 0.0-0.5 06/20/16 06/20/16 6:00pm 6:07am BASO # 0.1 K/uL 0.0-0.2 06/20/16 06/20/16 6:00pm 6:07am Manual NO 06/20/16 06/20/16 Differential 6:00pm 6:07am Prothrombin 11.8 SECONDS 10.0-12.9 06/20/16 06/20/16 Time 6:00pm 6:04am INR 1.1 06/20/16 06/20/16 International 6:00pm 6:04am THE INR IS TO BE USED ONLY FOR MONITORING ORAL ANTICOAGULANT Normalized THERAPY. Ratio INDICATION INR VALUE 1. Prophylaxis of venous thrombosis 2.0-3.0 (high-risk surgery) Treatment of venous thrombosis Treatment of PE Prevention of systemic embolism Tissue heart valves AMI (to prevent systemic embolism) Valvular heart disease Atrial fibrillation Bileaflet mechanical valve in aortic position 2. Mechanical prosthetic heart valves (high risk) 2.5-3.5 Thrombosis and Antiphospholipid syndrome Prevention of recurrent AL Sixth ACCP Consensus Conference on Antithrombotic Therapy, Chest 2001; 119:Supplement 8-21. Sodium Level 133 mmol/L L 135-144 06/20/16 06/20/16 6:00pm 6:19am Potassium 4.6 mmol/L 3.5-5.1 06/20/16 06/20/16 Level 6:00pm 6:19am Chloride 99 mmol/L L 101-111 06/20/16 06/20/16 Level 6:00pm 6:19am Carbon 28 mmol/L 22-32 06/20/16 06/20/16 Dioxide Level 6:00pm 6:19am Anion Gap 10.6 mmol/L 10-20 06/20/16 06/20/16 6:00pm 6:19am Glucose Level 126 mg/dL H 70-109 06/20/16 06/20/16 Random glucose > 200 mg/dL in a patient with typical 6:00pm 6:19am symptoms of diabetes (polydipsia, polyuria and unexplained weight loss) satisfies ADA criteria for diabetes mellitus if confirmed by repeat testing on another day. Confirmation is unnecessary when acute metabolic decompensation with hyperglycemia is manifested. Reference: Report of the Expert Committee on the Diagnosis and Classification of Diabetes Mellitus. Diabetes Care, 20:1183, 1997. Blood Urea 21 mg/dL 8-26 06/20/16 06/20/16 Nitrogen 6:00pm 6:19am Creatinine 1.10 mg/dL 0.61-1.24 06/20/16 06/20/16 6:00pm 6:19am EGFR Note > 60.0 06/20/16 06/20/16 eGFR (Estimated Glomerular Filtration Rate) 6:00pm 6:19am Reference Range: >60 ml/min/1.73m eGFR calculation value obtained using the [facility] Quadratic (MCQ) equation. The reportable reference range is recommended to be greater than 60 ml/min/1.73m. This is an estimation of the patient's GFR and clinical correlation is recommended. This eGFR calculation does not account for race. This result may differ from other equations available. Calcium Level 9.2 mg/dL 8.9-10.3 06/20/16 06/20/16 6:00pm 6:19am Albumin 4.2 g/dL 3.5-5.0 06/20/16 06/20/16 6:00pm 6:19am Total 0.8 mg/dL 0.3-1.2 06/20/16 06/20/16 Bilirubin 6:00pm 6:19am Alkaline 118 IU/L H 32-91 06/20/16 06/20/16 Phosphatase 6:00pm 6:19am Total Protein 9.4 g/dL H 6.5-8.1 06/20/16 06/20/16 6:00pm 6:19am Alanine 56 IU/L H 7-55 06/20/16 06/20/16 Aminotransfer 6:00pm 6:19am ase (ALT/SGPT) Aspartate 51 IU/L H 15-41 06/20/16 06/20/16 Amino Transf 6:00pm 6:19am (AST/SGOT) Globulin 5.2 g/dL H 2.3-3.5 06/20/16 06/20/16 6:00pm 6:19am Albumin/Globu 0.8 L 1.2-2.2 06/20/16 06/20/16 sha Ratio 6:00pm 6:19am Creatine 348 IU/L 49-397 06/20/16 06/20/16 Kinase 6:00pm 6:19am Creatine 1.2 ng/ML 0.6-6.3 06/20/16 06/20/16 Kinase MB 6:00pm 6:19am Troponin I < 0.02 ng/mL 0.00-0.03 06/20/16 06/20/16 6:00pm 6:19am Troponin I-Interpretation Reference : <0.03 ng/mL NEGATIVE [...] Serial sampling is critical for accurate diagnosis. Procedures No Known History of Procedures. Encounters Encounter Location Arrival/Admit Date Discharge/Depart Date Attending Provider Departed [place] 08/31/16 8:35pm 08/31/16 10:15pm MARQUES RENDON [facility] Registered [place] 07/19/16 1:29pm CAHRLIE ARIAS [facility] Registered [place] 07/08/16 1:53pm [facility] Registered [place] 06/25/16 12:15pm [facility] Registered [place] 06/22/16 12:58pm PASQUALE GATICA [facility] Departed [place] 06/20/16 5:15am 06/20/16 7:36am COY LARRY [facility] Encounter Diagnosis
--- OUTSIDE RECORDS SUMMARY | 2017-04-07 23:32 | XMS | Continuity of Care Document ---
:1980 Author Organization [facility] Care Team Providers Name Role Phone LIAT, DALY Primary Care Physician Unavailable Insurance Providers Payer Name Policy Number Subscriber Name Relationship MEDICARE [id number] [place] SELF/SAME PATIENT Advance Directives Directive Response Recorded Date/Time Advance Directive? N 11/21/15 4:01pm Living Will? N 11/21/15 4:01pm Health Care Proxy? N 11/21/15 4:01pm Healthcare Power of Braker Passenger Train? N 11/21/15 4:01pm Is the patient an Organ Donor? N 11/21/15 10:55am Chief Complaint and Reason for Visit Reason for Visit ELEVATED TRANSMINASE LEVEL/CHEST PAIN Problems Active Medical Problems Problem Onset Date [...] Active Elevated transaminase level Unknown 11/21/15 Active Medications Current Home Medications Medication Dose Units Route Directions Days/Qty Instructions Start Date ACETAMINOPHEN 1 TAB PO EVERY SIX HOURS 30 PRN SEVERE PAIN 11/22/15 W/CODEINE #3 NEEDED PRN (TYLENOL #3) 300 MG/30 MG TAB Carbamazepine 900 MG PO [...] Smoking Status: Never Smoker Hospital Discharge Instructions Diagnosis: CP Goal: CLEAR PAIN Intervention: MEDS Anticipated Discharge Date 11/22/15 Plan of Care Discharge Date 11/22/15 Disposition HOME/SELF CARE Instructions/Education Provided DI for Chest Pain Forms Provided Patient Portal Logon Page Prescriptions See Medications Section Additional Instructions/Education F/U W/ [place] Care Plan and Goals See Discharge Instructions section Functional Status Query Response Date Recorded WNL?+ Y November 22, 2015 9:00am Allergies, Adverse Reactions, Alerts No known allergies. Immunizations Name Date Given Type Pnuemonia Vaccine last 5 years? N Historical Vital Signs Vital Reading Collection Date/Time Result Blood Pressure 11/22/15 12:16pm 164/106 Blood Pressure Source 11/22/15 4:00am Auto Cuff Patient Temperature 11/22/15 12:16pm 97.9 Temperature Source 11/22/15 4:00am Oral Respiratory Rate 11/22/15 12:16pm 20 Pulse Rate 11/22/15 12:16pm 79 Pulse Location 11/22/15 4:00am Monitor Bedside Pulse Oximetry 11/22/15 12:16pm 96 Height 11/21/15 4:01pm 177.8 cm Height 11/21/15 4:01pm 5 ft 10 in Weight 11/22/15 5:24am 110.677 kg Weight 11/22/15 5:24am 244 lb 0.00 oz Body Mass Index 11/21/15 4:01pm 35.0 Results Laboratory Results Test Name Result Units Flags Reference Collection Result Comments Date/Time Date/Time Sodium Level 135 mmol/L 135-144 11/22/15 11/22/15 5:37am 6:10am Potassium 3.5 mmol/L 3.5-5.1 11/22/15 11/22/15 Level 5:37am 6:10am Chloride Level 100 mmol/L L 101-111 11/22/15 11/22/15 5:37am 6:10am Carbon Dioxide 28 mmol/L 22-32 11/22/15 11/22/15 Level 5:37am 6:10am Anion Gap 10.5 mmol/L 10-20 11/22/15 11/22/15 5:37am 6:10am Random Glucose 100 mg/dL 70-109 11/22/15 11/22/15 Random glucose > 200 mg/dL in a patient with typical 5:37am 6:10am symptoms of diabetes (polydipsia, polyuria and unexplained weight loss) satisfies ADA criteria for diabetes mellitus if confirmed by repeat testing on another day. Confirmation is unnecessary when acute metabolic decompensation with hyperglycemia is manifested. Reference: Report of the Expert Committee on the Diagnosis and Classification of Diabetes Mellitus. Diabetes Care, 20:1183, 1997. Blood Urea 12 mg/dL 8-26 11/22/15 11/22/15 Nitrogen 5:37am 6:10am Creatinine 0.80 mg/dL 0.61-1.24 11/22/15 11/22/15 5:37am 6:10am EGFR Note > 60.0 11/22/15 11/22/15 eGFR (Estimated Glomerular Filtration Rate) 5:37am 6:10am Reference Range: >60 ml/min/1.73m eGFR calculation value obtained using the MDRD equation. The reportable reference ranges is recommended to be greater than 60 ml/min/1.73m. This is an estimation of the patient's GFR and clinical correlation is recommended. Calcium Level 8.4 mg/dL L 8.9-10.3 11/22/15 11/22/15 5:37am 6:10am Albumin 3.9 g/dL 3.5-5.0 11/22/15 11/22/15 5:37am 6:10am Total 0.6 mg/dL 0.3-1.2 11/22/15 11/22/15 Bilirubin 5:37am 6:10am Alkaline 101 IU/L H 32-91 11/22/15 11/22/15 Phosphatase 5:37am 6:10am Total Protein 7.9 g/dL 6.5-8.1 11/22/15 11/22/15 5:37am 6:10am Alanine 63 IU/L H 7-55 11/22/15 11/22/15 Aminotransfera 5:37am 6:10am se (ALT/SGPT) Aspartate 38 IU/L 15-41 11/22/15 11/22/15 Amino Transf 5:37am 6:10am (AST/SGOT) Globulin 4.0 g/dL H 2.3-3.5 11/22/15 11/22/15 5:37am 6:10am Albumin/Globul 1.0 L 1.2-2.2 11/22/15 11/22/15 in Ratio 5:37am 6:10am Creatine 164 IU/L 49-397 11/22/15 11/22/15 Kinase 5:37am 6:17am Creatine 0.8 ng/ML 0.6-6.3 11/22/15 11/22/15 Kinase MB 5:37am 6:17am Troponin I < 0.01 ng/mL 0.00-0.03 11/22/15 11/22/15 5:37am 6:17am Troponin I-Interpretation Reference : <0.03 ng/mL NEGATIVE [...] Serial sampling is critical for accurate diagnosis. Urine NEGATIVE NEGATIVE 11/21/15 11/21/15 Amphetamines 11:17am 11:33am Screen Urine POSITIVE A NEGATIVE 11/21/15 11/21/15 Barbiturates 11:17am 11:33am Screen Urine NEGATIVE NEGATIVE 11/21/15 11/21/15 Buprenorphine 11:17am 11:33am Screen Benzodiazepine NEGATIVE NEGATIVE 11/21/15 11/21/15 s Screen 11:17am 11:33am Cocaine Screen NEGATIVE NEGATIVE 11/21/15 11/21/15 11:17am 11:33am Urine NEGATIVE NEGATIVE 11/21/15 11/21/15 Methamphetamin 11:17am 11:33am es Screen Methadone NEGATIVE NEGATIVE 11/21/15 11/21/15 Screen 11:17am 11:33am Opiates Screen NEGATIVE NEGATIVE 11/21/15 11/21/15 11:17am 11:33am Oxycodone NEGATIVE NEGATIVE 11/21/15 11/21/15 Screen 11:17am 11:33am Phencyclidine NEGATIVE NEGATIVE 11/21/15 11/21/15 (PCP) Screen 11:17am 11:33am Propoxyphene NEGATIVE NEGATIVE 11/21/15 11/21/15 Screen 11:17am 11:33am Urine NEGATIVE NEGATIVE 11/21/15 11/21/15 Cannabinoids 11:17am 11:33am Screen Tricyclic NEGATIVE NEGATIVE 11/21/15 11/21/15 Antidepressant 11:17am 11:33am Please note this is a new method. Refer to the comments s Screen below for more information. CUT OFF CONCENTRATIONS: AMPHETAMINE 500 ng/ml BARBITURATES 200 ng/ml BENZODIAZEPINES 150 ng/ml BUPRENORPHINE 10 ng/ml COCAINE 150 ng/ml METHAMPHETAMINE 500 ng/ml METHADONE 200 ng/ml OPIATES 100 ng/ml OXYCODONE 100 ng/ml PHENCYCLIDINE 25 ng/ml PROPOXYPHENE 300 ng/ml CANNIBINOIDS 50 ng/ml TRICYCLIC ANTIDEPRESSANTS 300 ng/ml ATTENTION: It is important to remember that the [employer] RFIDTOX device, like other instant drug testing immunoassays are screening tests and they give a preliminary result. A presumptive positive result(s) should be explored for possible alternative explanations- i.e. known related/unrelated cross reactive compounds, etc. Alternative, more specific methods like GC/MS OR LC/MS should be utilized to obtain a definitive confirmed quantitative result. A presumptive positive result for any drug does not indicate the level of intoxication, administration route or concentration of that drug in the urine specimen. A negative result may not necessarily indicate drug-free urine. Negative results can be obtained when drug is present but below the cut-off level of the test. White Blood 6.5 K/uL 4.8-10.8 11/21/15 11/21/15 Count 10:22am 10:41am Red Blood 5.13 M/uL 4.70-6.00 11/21/15 11/21/15 Count 10:22am 10:41am Hemoglobin 14.7 g/dL 13.5-17.5 11/21/15 11/21/15 10:22am 10:41am Hematocrit 44.4 % 42.0-52.0 11/21/15 11/21/15 10:22am 10:41am Mean 86.5 fl 80.0-100.0 11/21/15 11/21/15 Corpuscular 10:22am 10:41am Volume Mean 28.6 pg 27.0-31.0 11/21/15 11/21/15 Corpuscular 10:22am 10:41am Hemoglobin Mean 33.1 g/dL 32.0-36.0 11/21/15 11/21/15 Corpuscular 10:22am 10:41am Hgb Concent Diff Red Cell 13.4 % 11.5-14.5 11/21/15 11/21/15 Distribution 10:22am 10:41am Width Platelet Count 319 K/uL 130-400 11/21/15 11/21/15 10:22am 10:41am Mean Platelet 8.2 fl 7.4-10.4 11/21/15 11/21/15 Volume 10:22am 10:41am Granulocytes 62.2 % 50.0-75.0 11/21/15 11/21/15 (%) 10:22am 10:41am Lymphocytes % 30.1 % 20.0-40.0 11/21/15 11/21/15 10:22am 10:41am Monocytes % 7.2 % 0.0-15.0 11/21/15 11/21/15 10:22am 10:41am Eosinophils % 0.0 % 0.0-10.0 11/21/15 11/21/15 10:22am 10:41am Basophils % 0.5 % 0.0-2.0 11/21/15 11/21/15 10:22am 10:41am Granulocytes # 4.0 K/uL 1.8-6.4 11/21/15 11/21/15 10:22am 10:41am Lymphocytes # 1.9 K/uL 1.2-3.6 11/21/15 11/21/15 10:22am 10:41am Monocytes # 0.5 K/uL 0.3-0.9 11/21/15 11/21/15 10:22am 10:41am Eosinophils # 0.0 K/UL 0.0-0.5 11/21/15 11/21/15 10:22am 10:41am BASO # 0.0 K/UL 0.0-0.2 11/21/15 11/21/15 10:22am 10:41am Manual NO 11/21/15 11/21/15 Differential 10:22am 10:41am Prothrombin 12.5 SECONDS 10.0-12.9 11/21/15 11/21/15 Time 10:22am 10:55am INR 1.1 11/21/15 11/21/15 International 10:22am 10:55am THE INR IS TO BE USED ONLY [...] Thrombosis and Antiphospholipid syndrome Prevention of recurrent [place] Sixth ACCP Consensus Conference on Antithrombotic Therapy, Chest 2001; 119:Supplement 8-21. Activated 37.0 SECONDS H 25.1-36.5 11/21/15 11/21/15 Partial 10:22am 10:55am Thromboplast Time D-Dimer < 200 ng/mL 0-200 11/21/15 11/21/15 The 99-100% NPV (Negative Predictive Value) for DVT/PE 10:22am 10:55am exclusion is <230 ng/mL as suggested by the commissioned defence force officer and as approved by the FDA. Clinical correlation is needed. Carbamazepine 4 ug/mL 4-12 11/21/15 11/21/15 (Tegretol) 10:22am 10:44am Level Myoglobin 12 ug/mL L 17.4-106.0 11/21/15 11/21/15 10:22am 10:44am Urine Color YELLOW YELLOW 10/16/15 10/16/15 11:45am 12:03pm Urine CLEAR CLEAR 10/16/15 10/16/15 Appearance 11:45am 12:03pm Urine Glucose NEGATIVE mg/dL NEGATIVE 10/16/15 10/16/15 11:45am 12:03pm Urine NEGATIVE NEGATIVE 10/16/15 10/16/15 Bilirubin 11:45am 12:03pm Urine Ketones NEGATIVE NEGATIVE 10/16/15 10/16/15 11:45am 12:03pm Urine Specific 1.025 1.002-1.03 10/16/15 10/16/15 [place] 0 11:45am 12:03pm Urine Blood NEGATIVE NEGATIVE 10/16/15 10/16/15 11:45am 12:03pm Urine pH 7.5 4.5-8.0 10/16/15 10/16/15 11:45am 12:03pm Urine Protein NEGATIVE mg/dL NEGATIVE 10/16/15 10/16/15 11:45am 12:03pm Urine 0.2 E.U./dL 0.2 10/16/15 10/16/15 Urobilinogen 11:45am 12:03pm Urine Nitrite NEGATIVE NEGATIVE 10/16/15 10/16/15 11:45am 12:03pm Urine NEGATIVE NEGATIVE 10/16/15 10/16/15 Leukocyte 11:45am 12:03pm Esterase Urine NO NO 10/16/15 10/16/15 Microscopic 11:45am 12:03pm Indicated White Blood 5.9 K/uL 4.8-10.8 10/16/15 10/16/15 Count 11:00am 11:24am Red Blood 4.79 M/uL 4.70-6.00 10/16/15 10/16/15 Count 11:00am 11:24am Hemoglobin 13.7 g/dL 13.5-17.5 10/16/15 10/16/15 11:00am 11:24am Hematocrit 41.0 % L 42.0-52.0 10/16/15 10/16/15 11:00am 11:24am Mean 85.5 fl 80.0-100.0 10/16/15 10/16/15 Corpuscular 11:00am 11:24am Volume Mean 28.6 pg 27.0-31.0 10/16/15 10/16/15 Corpuscular 11:00am 11:24am Hemoglobin Mean 33.4 g/dL 32.0-36.0 10/16/15 10/16/15 Corpuscular 11:00am 11:24am Hgb Concent Diff Red Cell 13.3 % 11.5-14.5 10/16/15 10/16/15 Distribution 11:00am 11:24am Width Platelet Count 243 K/uL 130-400 10/16/15 10/16/15 11:00am 11:24am Mean Platelet 8.6 fl 7.4-10.4 10/16/15 10/16/15 Volume 11:00am 11:24am Granulocytes 61.8 % 50.0-75.0 10/16/15 10/16/15 (%) 11:00am 11:24am Lymphocytes % 30.4 % 20.0-40.0 [...] mmol/L 135-144 10/16/15 10/16/15 11:00am 11:30am Potassium 3.9 mmol/L 3.5-5.1 10/16/15 10/16/15 Level 11:00am 11:30am Chloride Level 103 mmol/L 101-111 [...] Mellitus. Diabetes Care, 20:1183, 1996. Blood Urea 14 mg/dL 8-26 10/16/15 10/16/15 [...] g/dL 3.5-5.0 10/16/15 10/16/15 11:00am 11:30am Total 0.5 mg/dL 0.3-1.2 10/16/15 10/16/15 Bilirubin 11:00am 11:30am Alkaline 86 IU/L 32-91 10/16/15 10/16/15 Phosphatase 11:00am 11:30am Total Protein 7.9 g/dL 6.5-8.1 10/16/15 10/16/15 11:00am 11:30am Alanine 42 IU/L 7-55 10/16/15 10/16/15 Aminotransfera 11:00am 11:30am se (ALT/SGPT) Aspartate 33 IU/L 15-41 10/16/15 10/16/15 Amino Transf 11:00am 11:30am (AST/SGOT) Globulin 3.6 g/dL H 2.3-3.5 10/16/15 10/16/15 11:00am 11:30am Albumin/Globul 1.0 L 1.2-2.2 10/16/15 10/16/15 in Ratio 11:00am 11:30am Carbamazepine 7 ug/mL 4-12 10/16/15 10/16/15 (Tegretol) 11:00am 11:30am Level [facility] DISCHARGE SUMMARY [place] Baron ADM: 11/21/2015 DIS: 11/22/2015 [id number] [id number] HISTORY OF PRESENT ILLNESS: This is a 35-year-old male with past medical history of seizure disorder presents with acute seizure. See history and physical for further details. HOSPITAL COURSE: Acute seizure. Patient had an acute seizure, likely stress-induced. He was continued on his seizure medication. He was seizure free. He had some chest pain, likely musculoskeletal, from the convulsions and he had some transaminitis which improved. Overall clinical condition was very good and he discharged home. Discharged home. DIAGNOSES: 1. Acute seizure. 2. Chest pain. 3. transaminitis. DIET: Regular. ACTIVITIES: As tolerated. FOLLOWUP: Patient is to follow up with Dr. Lucio. OMAR/LESVIA/C0134 Daly Buck M.D. DISCHARGE SUMMARY DATE: TIME: /LESVIA C0134 #[id number] Report Dictated By: DALY BUCK Report Signed By: DALY BUCK 11/22/15 1858 <<Signature on File>> Report Cosigned By: Procedures No Known History of Procedures. Encounters Encounter Location Arrival/Admit Date Discharge/Depart Date Attending Provider Discharged [place] 11/21/15 10:04am 11[facility] [place] [facility] 10:04[facility] [place] [facility] 10:34pm 11/12/15 2:34am Prosper Baxter [facility] Departed [place] 10/30/15 7:54am [facility] [place] [facility] 10:37am 10/16/15 2:09pm Prosper Baxter MD Hospital Encounter Diagnosis Onset Date Seizure Costochondral pain Chest pain Seizure disorder Chest wall pain Musculoskeletal pain Atypical chest pain Anterior chest wall pain Non compliance w medication regimen Pain due to dental caries Seizure Heart failure, diastolic, with acute decompensation Pleural effusion, left Acute kidney injury superimposed on CKD Pleuritic chest pain Pain, dental Fractured tooth Elevated transaminase level
--- OUTSIDE RECORDS SUMMARY | 2017-04-07 23:32 | XMS | Continuity of Care Document ---
:1980 Author Organization [facility] Care Team Providers Name Role Phone [facility] Primary Care Physician Unavailable Insurance Providers Payer Name Policy Number Subscriber Name Relationship MEDICARE [id number] RAZIA GLASS SELF/SAME PATIENT Advance Directives Directive Response Recorded Date/Time Advance Directive? N 06/20/16 5:47am Living Will? N 06/20/16 5:47am Health Care Proxy? N 06/20/16 5:47am Healthcare Power of Qa Manager? N 06/20/16 5:47am Is the patient an Organ Donor? N 06/20/16 5:47am Chief Complaint and Reason for Visit Reason for Visit SEVERE CHEST PAIN Problems Active Medical Problems Problem Onset [...] PRN (TYLENOL #3) 300 MG/30 MG TAB CYCLOBENZAPRINE HCL 10 MG PO AT BEDTIME 14 06/20/16 (CYCLOBENZAPRINE 10 (2100) MG TAB) 10 MG TAB Carbamazepine 900 MG PO TWICE A DAY 42 05/11/16 (Antipsychotic) (0900; 2099) (EQUETRO 300 MG CAP) 300 MG CAP Carbamazepine 300 MG PO EVERY DAY @ 0900 30 03/06/16 (CARBAMAZEPINE ER 100 MG CAP) 100 MG CAP Carbamazepine 900 MG PO EVERY DAY @ 0900 (CARBATROL 300 MG CAP) 300 MG CAP Carbamazepine 600 MG PO AT BEDTIME (CARBATROL 300 MG (2100) CAP) 300 MG CAP DIAZEPAM (DIAZEPAM 10 MG PO TWICE DAILY 30 PRN ANXIETY/ 11/22/15 10 MG TAB) 10 MG NEEDED PRN INSOMNIA TAB IBUPROFEN 800 MG PO EVERY EIGHT 30 07/28/15 (IBUPROFEN 800 MG HOURS NEEDED TAB) 800 MG TAB PRN PAIN AND INFLAMMATION Primidone (MYSOLINE 250 MG PO THREE TIME A 05/25/16 250 MG TAB) 250 MG DAY(;;) TAB Primidone 250 MG OR THREE TIME A (PRIMIDONE 250 MG DAY(;;) TAB) 250 MG TAB Primidone 250 MG PO THREE TIME A 30 03/06/16 (PRIMIDONE 250 MG DAY(;;) TAB) 250 MG TAB Primidone 250 MG PO THREE TIME A 21 05/11/16 (PRIMIDONE 250 MG DAY(;;) TAB) 250 MG TAB Past Home Medications Medication Directions Ordered Status Acetaminophen W/Codeine #3 EVERY FOUR HOURS PRN PAIN 04/11/14 Discontinued (Tylenol #3) 300 Mg/30 Mg Tab Tab, 1-2 Tab Po Acetaminophen/Cod 300/30MG Tab EVERY FOUR HOURS NEEDED PRN 07/28/15 Discontinued (Tylenol #3) 300 Mg/30 Mg Tab PAIN Tab, 1 Tab Po Amoxicillin Trihydrate THREE TIME A DAY(;;) 05/23/15 Discontinued (Amoxicillin 500 Mg) 500 Mg Cap Cap, 500 Mg Po Amoxicillin Trihydrate TWICE A DAY (0900; 2099) 10/30/15 Discontinued (Amoxicillin 875 Mg Tab) [...] (Tegretol 200 Mg FOUR TIMES A DAY (899) 03/07/14 Discontinued Tab) 200 Mg Tab Tab, 300 Mg Or Carbamazepine (Tegretol 200 Mg THREE TIME A DAY(;) 04/02/14 Discontinued Tab) 200 Mg Tab Tab, [...] Naproxen 500MG Plain Tab TWICE A DAY (899; 2099) 04/11/14 Discontinued (Naprosyn 500 Mg Tab) 500 [...] Problem Response Recorded Date Recreational drugs? N 06/20/16 Alcohol? N 06/20/16 Query Response Start Date Stop Date Smoking Status: Never Smoker Hospital Discharge Instructions No hospital discharge instructions. Plan of Care Discharge Date 06/20/16 Disposition HOME/SELF CARE Condition at Discharge STABLE Instructions/Education Provided DI for Costochondritis Forms Provided Discharge Form Prescriptions See Medications Section Referrals [facility] - Functional Status No functional status results. Allergies, Adverse Reactions, Alerts No known allergies. Immunizations No Known History of Immunizations. Vital Signs Vital Reading Collection Date/Time Result Blood Pressure 06/20/16 7:36am 130/88 Patient Temperature 06/20/16 7:36am 98 Temperature Source 06/20/16 5:55am Tympanic Respiratory Rate 06/20/16 5:55am 18 Pulse Rate 06/20/16 7:36am 90 Bedside Pulse Oximetry 06/20/16 7:36am 98 Height 06/20/16 5:20am 180.34 cm Height 06/20/16 5:20am 5 ft 11.00 in Weight 06/20/16 5:20am 108.862 kg Weight 06/20/16 5:20am 240 lb 0.00 oz Body Mass Index 06/20/16 5:20am 33.5 Results Laboratory Results Test Name Result Units Flags Reference Collection Result Comments Date/Time Date/Time D-Dimer 270 ng/mL H 0-200 06/20/16 06/20/16 The 99-100% NPV (Negative Predictive Value) for DVT/PE 6:50am 7:59am exclusion is <230 ng/mL as suggested by the community outreach advocate and as approved by the FDA. Clinical [...] 06/20/16 06/20/16 Distribution 6:00pm 6:07am Width Platelet Count 284 K/uL 130-400 06/20/16 06/20/16 6:00pm 6:07am Mean Platelet 8.9 fl 06/20/16 06/20/16 Volume 6:00pm 6:07am Granulocytes 54.4 % 50.0-75.0 06/20/16 06/20/16 (%) 6:00pm 6:07am Lymphocytes % 37.1 % 20.0-40.0 06/20/16 06/20/16 6:00pm 6:07am Monocytes % 7.5 % 0.0-15.0 06/20/16 06/20/16 6:00pm 6:07am Eosinophils % 0.1 % 0.0-10.0 06/20/16 06/20/16 6:00pm 6:07am Basophils % 0.9 % 0.0-2.0 06/20/16 06/20/16 6:00pm 6:07am Granulocytes # 3.9 K/uL 1.8-6.4 06/20/16 06/20/16 6:00pm 6:07am Lymphocytes # 2.7 K/uL 1.2-3.6 [...] Thrombosis and Antiphospholipid syndrome Prevention of recurrent MA Sixth ACCP Consensus Conference on Antithrombotic Therapy, Chest 2001; 119:Supplement 8-21. Sodium Level 133 mmol/L L 135-144 06/20/16 06/20/16 6:00pm 6:19am Potassium 4.6 mmol/L 3.5-5.1 06/20/16 06/20/16 Level 6:00pm 6:19am Chloride Level 99 mmol/L L 101-111 06/20/16 06/20/16 6:00pm 6:19am Carbon Dioxide 28 mmol/L 22-32 06/20/16 06/20/16 Level 6:00pm 6:19am Anion Gap 10.6 mmol/L [...] ml/min/1.73m eGFR calculation value obtained using the [facility] Quadratic (MCQ) equation. The reportable reference range [...] Alanine 56 IU/L H 7-55 06/20/16 06/20/16 Aminotransfera 6:00pm 6:19am se (ALT/SGPT) Aspartate 51 IU/L H 15-41 06/20/16 06/20/16 Amino Transf 6:00pm 6:19am (AST/SGOT) Globulin 5.2 g/dL H 2.3-3.5 06/20/16 06/20/16 6:00pm 6:19am Albumin/Globul 0.8 L 1.2-2.2 06/20/16 06/20/16 in Ratio 6:00pm 6:19am Creatine 348 IU/L 49-397 [...] Serial sampling is critical for accurate diagnosis. Sodium Level 135 mmol/L 135-144 05/25/16 05/25/16 1:23pm 1:46pm Potassium 4.0 mmol/L 3.5-5.1 05/25/16 05/25/16 Level 1:23pm 1:46pm Chloride Level 98 mmol/L L 101-111 05/25/16 05/25/16 1:23pm 1:46pm Carbon Dioxide 29 mmol/L 22-32 05/25/16 05/25/16 Level 1:23pm 1:46pm Anion Gap 12.0 mmol/L 10-20 05/25/16 05/25/16 1:23pm 1:46pm Glucose Level 98 mg/dL 70-109 05/25/16 05/25/16 Random glucose > 200 mg /dL in a patient with typical 1:23pm 1:46pm symptoms of diabetes (polydipsia, polyuria and unexplained weight loss) satisfies ADA criteria for diabetes mellitus if confirmed by repeat testing on another day. Confirmation is unnecessary when acute metabolic decompensation with hyperglycemia is manifested. Reference: Report of the Expert Committee on the Diagnosis and Classification of Diabetes Mellitus. Diabetes Care, 20:1183, 1997. Blood Urea 13 mg/dL 8-26 05/25/16 05/25/16 Nitrogen 1:23pm 1:46pm Creatinine 1.00 mg/dL 0.61-1.24 05/25/16 05/25/16 1:23pm 1:46pm EGFR Note > 60.0 05/25/16 05/25/16 eGFR (Estimated Glomerular Filtration Rate) 1:23pm 1:46pm Reference Range: >60 ml/min/1.73m eGFR calculation value obtained using the [facility] Quadratic (MCQ) equation. The reportable reference range is recommended to be greater than 60 ml/min/1.73m. This is an estimation of the patient's GFR and clinical correlation is recommended. This eGFR calculation does not account for race. This result may differ from other equations available. Calcium Level 9.0 mg/dL 8.9-10.3 05/25/16 05/25/16 1:23pm 1:46pm White Blood 7.3 K/uL 4.8-10.8 05/25/16 05/25/16 Count 11:50am 12:13pm Red Blood 4.94 M/uL 4.70-6.00 05/25/16 05/25/16 Count 11:50am 12:13pm Hemoglobin 14.2 g/dL 13.5-17.5 05/25/16 05/25/16 11:50am 12:13pm Hematocrit 42.3 % 42.0-52.0 05/25/16 05/25/16 11:50am 12:13pm Mean 85.6 fl 80.0-100.0 05/25/16 05/25/16 Corpuscular 11:50am 12:13pm Volume Mean 28.6 pg 27.0-31.0 05/25/16 05/25/16 Corpuscular 11:50am 12:13pm Hemoglobin Mean 33.5 g/dL 32.0-36.0 05/25/16 05/25/16 Corpuscular 11:50am 12:13pm Hgb Concent Diff Red Cell 13.6 % 11.5-14.5 05/25/16 05/25/16 Distribution 11:50am 12:13pm Width Platelet Count 241 K/uL 130-400 05/25/16 05/25/16 11:50am 12:13pm Mean Platelet 8.6 fl 7.4-10.4 05/25/16 05/25/16 Volume 11:50am 12:13pm Granulocytes 62.8 % 50.0-75.0 05/25/16 05/25/16 (%) 11:50am 12:13pm Lymphocytes % 28.4 % 20.0-40.0 05/25/16 05/25/16 11:50am 12:13pm Monocytes % 8.2 % 0.0-15.0 05/25/16 05/25/16 11:50am 12:13pm Eosinophils % 0.0 % 0.0-10.0 05/25/16 05/25/16 11:50am 12:13pm Basophils % 0.6 % 0.0-2.0 05/25/16 05/25/16 11:50am 12:13pm Granulocytes # 4.6 K/uL 1.8-6.4 05/25/16 05/25/16 11:50am 12:13pm Lymphocytes # 2.1 K/uL 1.2-3.6 05/25/16 05/25/16 11:50am 12:13pm Monocytes # 0.6 K/uL 0.3-0.9 05/25/16 05/25/16 11:50am 12:13pm Eosinophils # 0.0 K/UL 0.0-0.5 05/25/16 05/25/16 11:50am 12:13pm BASO # 0.0 K/UL 0.0-0.2 05/25/16 05/25/16 11:50am 12:13pm Manual NO 05/25/16 05/25/16 Differential 11:50am 12:13pm Prothrombin 11.1 SECONDS 10.0-12.9 05/25/16 05/25/16 Time 11:50am 12:22pm INR 1.0 05/25/16 05/25/16 International 11:50am 12:22pm THE INR IS TO BE USED ONLY [...] Thrombosis and Antiphospholipid syndrome Prevention of recurrent MA Sixth ACCP Consensus Conference on Antithrombotic Therapy, Chest 2001; 119:Supplement 8-21. Activated 35.8 SECONDS 25.1-36.5 05/25/16 05/25/16 Partial 11:50am 12:22pm Thromboplast Time Creatine 219 IU/L 49-397 05/25/16 05/25/16 Kinase 11:50am 12:21pm Creatine 1.1 ng/ML 0.6-6.3 05/25/16 05/25/16 Kinase MB 11:50am 12:21pm Troponin I 0.03 ng/mL 0.00-0.03 05/25/16 05/25/16 11:50am 12:21pm Troponin I-Interpretation Reference : <0.03 ng/mL NEGATIVE [...] Serial sampling is critical for accurate diagnosis. Carbamazepine 7 ug/mL 4-12 05/25/16 05/25/16 (Tegretol) 11:50am 12:21pm Level Primidone None ug/mL 5.0-12.0 05/25/16 05/28/16 Detection Limit=0.3 (Mysoline) Detected 11:50am 8:36am <0.3 indicates None Detected Level Phenobarbital SEE 05/25/16 06/02/16 Phenobarbital, Serum 7 Low ug/mL 15 - 40 Level COMMENT 11:50am 3:34pm Detection Limit=[address] [address] Dir: Luis M Petty MD For inquiries, the physician may contact Branch: [phone] Lab: [phone] Carbamazepine 10 ug/mL 4-12 05/11/16 05/11/16 (Tegretol) 11:20am 11:55am Level White Blood 6.0 K/uL 4.8-10.8 05/11/16 05/11/16 Count 9:55am 10:09am Red Blood 5.27 M/uL 4.70-6.00 05/11/16 05/11/16 Count 9:55am 10:09am Hemoglobin 15.2 g/dL 13.5-17.5 05/11/16 05/11/16 9:55am 10:09am Hematocrit 45.1 % 42.0-52.0 05/11/16 05/11/16 9:55am 10:09am Mean 85.5 fl 80.0-100.0 05/11/16 05/11/16 Corpuscular 9:55am 10:09am Volume Mean 28.9 pg 27.0-31.0 05/11/16 05/11/16 Corpuscular 9:55am 10:09am Hemoglobin Mean 33.8 g/dL 32.0-36.0 05/11/16 05/11/16 Corpuscular 9:55am 10:09am Hgb Concent Diff Red Cell 13.3 % 11.5-14.5 05/11/16 05/11/16 Distribution 9:55am 10:09am Width Platelet Count 274 K/uL 130-400 05/11/16 05/11/16 9:55am 10:09am Mean Platelet 8.2 fl 05/11/16 05/11/16 Volume 9:55am 10:09am Granulocytes 57.6 % 50.0-75.0 05/11/16 05/11/16 (%) 9:55am 10:09am Lymphocytes % 34.0 % 20.0-40.0 05/11/16 05/11/16 9:55am 10:09am Monocytes % 7.7 % 0.0-15.0 05/11/16 05/11/16 9:55am 10:09am Eosinophils % 0.0 % 0.0-10.0 05/11/16 05/11/16 9:55am 10:09am Basophils % 0.7 % 0.0-2.0 05/11/16 05/11/16 9:55am 10:09am Granulocytes # 3.5 K/uL 1.8-6.4 05/11/16 05/11/16 9:55am 10:09am Lymphocytes # 2.0 K/uL 1.2-3.6 05/11/16 05/11/16 9:55am 10:09am Monocytes # 0.5 K/uL 0.3-0.9 05/11/16 05/11/16 9:55am 10:09am Eosinophils # 0.0 K/ul 0.0-0.5 05/11/16 05/11/16 9:55am 10:09am BASO # 0.0 K/uL 0.0-0.2 05/11/16 05/11/16 9:55am 10:09am Manual NO 05/11/16 05/11/16 Differential 9:55am 10:09am Prothrombin 11.2 SECONDS 10.0-12.9 05/11/16 05/11/16 Time 9:55am 10:46am INR 1.0 05/11/16 05/11/16 International 9:55am 10:46am THE INR IS TO BE USED ONLY [...] Thrombosis and Antiphospholipid syndrome Prevention of recurrent MA Sixth ACCP Consensus Conference on Antithrombotic Therapy, Chest 2001; 119:Supplement 8-21. Activated 38.5 SECONDS H 25.1-36.5 05/11/16 05/11/16 Partial 9:55am 10:46am Thromboplast Time Sodium Level 139 mmol/L 135-144 05/11/16 05/11/16 9:55am 10:36am Potassium 3.9 mmol/L 3.5-5.1 05/11/16 05/11/16 Level 9:55am 10:36am Chloride Level 98 mmol/L L 101-111 05/11/16 05/11/16 9:55am 10:36am Carbon Dioxide 30 mmol/L 22-32 05/11/16 05/11/16 Level 9:55am 10:36am Anion Gap 14.9 mmol/L 10-20 05/11/16 05/11/16 9:55am 10:36am Glucose Level 102 mg/dL 70-109 05/11/16 05/11/16 Random glucose > 200 mg/dL in a patient with typical 9:55am 10:36am symptoms of diabetes (polydipsia, polyuria and unexplained weight loss) satisfies ADA criteria for diabetes mellitus if confirmed by repeat testing on another day. Confirmation is unnecessary when acute metabolic decompensation with hyperglycemia is manifested. Reference: Report of the Expert Committee on the Diagnosis and Classification of Diabetes Mellitus. Diabetes Care, 20:1183, 1997. Blood Urea 11 mg/dL 8-26 05/11/16 05/11/16 Nitrogen 9:55am 10:36am Creatinine 0.90 mg/dL 0.61-1.24 05/11/16 05/11/16 9:55am 10:36am EGFR Note > 60.0 05/11/16 05/11/16 eGFR (Estimated Glomerular Filtration Rate) 9:55am 10:36am Reference Range: >60 ml/min/1.73m eGFR calculation value obtained using the [facility] Quadratic (MCQ) equation. The reportable reference range is recommended to be greater than 60 ml/min/1.73m. This is an estimation of the patient's GFR and clinical correlation is recommended. This eGFR calculation does not account for race. This result may differ from other equations available. Calcium Level 9.5 mg/dL 8.9-10.3 05/11/16 05/11/16 9:55am 10:36am Albumin 4.6 g/dL 3.5-5.0 05/11/16 05/11/16 9:55am 10:36am Total 0.5 mg/dL 0.3-1.2 05/11/16 05/11/16 Bilirubin 9:55am 10:36am Alkaline 112 IU/L H 32-91 05/11/16 05/11/16 Phosphatase 9:55am 10:36am Total Protein 9.3 g/dL H 6.5-8.1 05/11/16 05/11/16 9:55am 10:36am Alanine 40 IU/L 7-55 05/11/16 05/11/16 Aminotransfera 9:55am 10:36am se (ALT/SGPT) Aspartate 27 IU/L 15-41 05/11/16 05/11/16 Amino Transf 9:55am 10:36am (AST/SGOT) Globulin 4.7 g/dL H 2.3-3.5 05/11/16 05/11/16 9:55am 10:36am Albumin/Globul 1.0 L 1.2-2.2 05/11/16 05/11/16 in Ratio 9:55am 10:36am Creatine 186 IU/L 49-397 05/11/16 05/11/16 Kinase 9:55am 10:36am Creatine 1.1 ng/ML 0.6-6.3 05/11/16 05/11/16 Kinase MB 9:55am 10:36am Troponin I < 0.01 ng/mL 0.00-0.03 05/11/16 05/11/16 9:55am 10:36am Troponin I-Interpretation Reference : <0.03 ng/mL NEGATIVE [...] sampling is critical for accurate diagnosis. Myoglobin 19 ug/mL 17.4-106.0 05/11/16 05/11/16 9:55am 10:36am Procedures No Known History of Procedures. Encounters Encounter Location Arrival/Admit Date Discharge/Depart Date Attending Provider Departed [place] 06/20/16 5:15am 06/20/16 7:36am COY LARRY MD [facility] Departed [place] 05/25/16 9:16am 05/25/16 2:47pm QAM[facility] Departed [place] 05/11/16 9:43am 05/11/16 2:02pm Prosper Baxter [facility] [place] [facility] Encounter Diagnosis Atypical chest pain
--- OUTSIDE RECORDS SUMMARY | 2017-04-07 23:32 | XMS | Continuity of Care Document ---
:1980 Author Organization [facility] Care Team Providers Name Role Phone [facility], [facility] Primary Care Physician Unavailable Insurance Providers Payer Name Policy Number Subscriber Name Relationship MEDICARE [id number] RAZIA GLASS SELF/SAME PATIENT Advance Directives Directive Response Recorded Date/Time Advance Directive? N 05/11/16 10:35am Living Will? N 05/11/16 10:35am Health Care Proxy? N 05/11/16 10:35am Healthcare Power of Chain Maker? N 05/11/16 10:35am Is the patient an Organ Donor? N 05/11/16 10:35am Chief Complaint and Reason for Visit Reason for Visit CHEST PAIN/ELVATED BP Problems Active Medical Problems Problem Onset Date [...] MG/30 MG TAB Carbamazepine 900 MG PO TWICE [...] TIME A 21 05/11/16 (PRIMIDONE 250 MG DAY() TAB) 250 MG [...] discharge instructions. Plan of Care Discharge Date 05/11/16 Disposition HOME/SELF CARE Condition at Discharge STABLE Instructions/Education Provided DI for Seizure Disorder -- Adult DI for Atypical Chest Pain Forms Provided Discharge Form Prescriptions See Medications Section Referrals [facility] - Additional Instructions/Education FOLLOW UP WITH DOOR TO DOOR SALESPERSON FOR FURTHER EVALUATION CHEST PAIN, FOLLOW UP WITH NEUROLOGIST FOR SEIZURE DISORDER, PRIMARY CARE PHYSICIAN FOR FURTHER EVALUATION ELEVATED BLOOD PRESSURE, REFERRAL PROVIDED. Functional Status No functional status results. Allergies, Adverse Reactions, Alerts No known allergies. Immunizations No Known History of Immunizations. Vital Signs Vital Reading Collection Date/Time Result Blood Pressure 05/11/16 2:02pm 160/96 Patient Temperature 05/11/16 2:02pm 98.2 Temperature Source 05/11/16 9:50am Oral Respiratory Rate 05/11/16 1:45pm 20 Pulse Rate 05/11/16 2:02pm 92 Bedside Pulse Oximetry 05/11/16 2:02pm 96 Height 05/11/16 9:50am 180.34 cm Height 05/11/16 9:50am 5 ft 11.00 in Weight 05/11/16 9:50am 108.862 kg Weight 05/11/16 9:50am 240 lb 0.00 oz Body Mass Index 05/11/16 9:50am 33.5 Results Laboratory Results Test Name Result Units Flags Reference Collection Result Comments Date/Time Date/Time Carbamazepine 10 ug/mL 4-12 05/11/16 05/11/16 (Tegretol) Level 11:20am 11:55am White Blood 6.0 K/uL 4.8-10.8 05/11/16 05/11/16 Count 9:55am 10:09am Red Blood Count 5.27 M/uL 4.70-6.00 05/11/16 05/11/16 9:55am 10:09am Hemoglobin 15.2 g/dL 13.5-17.5 05/11/16 05/11/16 9:55am 10:09am Hematocrit 45.1 % 42.0-52.0 05/11/16 05/11/16 9:55am 10:09am Mean Corpuscular 85.5 fl 80.0-100.0 05/11/16 05/11/16 Volume 9:55am 10:09am Mean Corpuscular 28.9 pg 27.0-31.0 05/11/16 05/11/16 Hemoglobin 9:55am 10:09am Mean Corpuscular 33.8 g/dL 32.0-36.0 05/11/16 05/11/16 Hgb Concent Diff 9:55am 10:09am Red Cell 13.3 % 11.5-14.5 05/11/16 05/11/16 Distribution 9:55am 10:09am Width Platelet Count 274 K/uL 130-400 05/11/16 05/11/16 9:55am 10:09am Mean Platelet 8.2 fl 05/11/16 05/11/16 Volume 9:55am 10:09am Granulocytes (%) 57.6 % 50.0-75.0 05/11/16 05/11/16 9:55am 10:09am Lymphocytes % 34.0 % 20.0-40.0 [...] NO 05/11/16 05/11/16 Differential 9:55am 10:09am Prothrombin Time 11.2 SECONDS 10.0-12.9 05/11/16 05/11/16 9:55am 10:46am INR 1.0 05/11/16 05/11/16 International 9:55am 10:46am THE INR IS TO BE USED ONLY FOR MONITORING ORAL ANTICOAGULANT Normalized Ratio THERAPY. INDICATION INR VALUE 1. Prophylaxis of venous [...] mmol/L 135-144 05/11/16 05/11/16 9:55am 10:36am Potassium Level 3.9 mmol/L 3.5-5.1 05/11/16 05/11/16 9:55am 10:36am Chloride Level 98 mmol/L L 101-111 05/11/16 05/11/16 9:55am 10:36am Carbon Dioxide 30 mmol/L 22-32 05/11/16 05/11/16 Level 9:55am 10:36am Anion Gap 14.9 mmol/L 10-05/11/16 05/11/16 9:55am 10:36am Glucose Level 102 mg/dL [...] Care, 20:1183, 1997. Blood Urea 11 mg/dL 8-05/11/1616 Nitrogen 9:55am 10:36am Creatinine 0.90 mg/dL 0.61-1.24 05/11/16 05/11/16 9:55am 10:36am EGFR Note > 60.0 05/11/16 05/11/16 eGFR (Estimated Glomerular Filtration Rate) 9:55am 10:36am Reference Range: >60 ml/min/1.73m eGFR calculation value obtained using the [facility] Quadratic (MCQ) equation. The reportable reference range is recommended to be greater than 60 ml/min/1.73m. This is an estimation of the patient's GFR and clinical correlation is recommended. This eGFR calculation does not account for race. This result may differ from other equations available. Calcium Level 9.5 mg/dL 8.9-10.3 05/11/16 05/11/16 9:55am 10:36am Albumin 4.6 g/dL 3.5-5.0 05/11/16 05/11/16 9:55am 10:36am Total Bilirubin 0.5 mg/dL 0.3-1.2 05/11/16 05/11/16 9:55am 10:36am Alkaline 112 IU/L H 32-91 05/11/16 05/11/16 Phosphatase 9:55am 10:36am Total Protein 9.3 g/dL H 6.5-8.1 05/11/16 05/11/16 9:55am 10:36am Alanine 40 IU/L 7-55 05/11/16 05/11/16 Aminotransferase 9:55am 10:36am (ALT/SGPT) Aspartate Amino 27 IU/L 15-41 05/11/16 05/11/16 Transf 9:55am 10:36am (AST/SGOT) Globulin 4.7 g/dL H 2.3-3.5 05/11/16 05/11/16 9:55am 10:36am Albumin/Globulin 1.0 L 1.2-2.2 05/11/16 05/11/16 Ratio 9:55am 10:36am Creatine Kinase 186 IU/L 49-397 05/11/16 05/11/16 9:55am 10:36am Creatine Kinase 1.1 ng/ML 0.6-6.3 05/11/16 05/11/16 MB 9:55am 10:36am Troponin I < 0.01 [...] Arrival/Admit Date Discharge/Depart Date Attending Provider Departed [place] 05/11/16 9:43am 05/11/16 2:02pm Prosper Baxter [facility] [place] [facility] Departed [place] 03/06/16 9:33pm 03/06/16 11:29pm Jose Angel Christian [facility] Encounter Diagnosis Atypical chest pain Seizure
--- OUTSIDE RECORDS SUMMARY | 2017-04-07 23:32 | XMS | Continuity of Care Document ---
:1980 Author Organization [facility] Care Team Providers Name Role Phone [facility], [facility] Primary Care Physician Unavailable Insurance Providers Payer Name Policy Number Subscriber Name Relationship MEDICARE [id number] RAZIA GLASS SELF/SAME PATIENT Advance Directives Directive Response Recorded Date/Time Advance Directive? N 05/25/16 10:26am Living Will? N 05/25/16 10:26am Health Care Proxy? N 05/25/16 10:26am Healthcare Power of Processor Helper? N 05/25/16 10:26am Is the patient an Organ Donor? N 05/25/16 10:26am Chief Complaint and Reason for Visit Reason for Visit SEIZURE THIS AM/VOMITED BLOOD AFTERWARDS Problems Active Medical Problems Problem Onset Date [...] level Unknown 11/21/15 Active Medication refill Unknown 09/24/16 Active Medications Current Home Medications Medication Dose [...] PRN PAIN AND INFLAMMATION Primidone 250 MG PO THREE TIME A 20 05/25/16 (MYSOLINE 250 MG DAY(;;) TAB) 250 MG TAB Primidone 250 MG OR THREE TIME [...] Carbamazepine (Carbatrol 200 Mg TWICE A DAY (2099) 11/09/14 Discontinued Cap) 200 Mg Cap Cap, 400 Mg Po Carbamazepine (Carbatrol 200 Mg TWICE A DAY (899; 2099) 04/02/14 Discontinued Cap) 200 Mg Cap Cap, 400 Mg Or Carbamazepine (Carbatrol 300 Mg TWICE A DAY (2099) Unknown Discontinued Cap) 300 Mg Cap Cap, [...] Dr 500 Mg Tab) TWICE A DAY (2099) PRN 05/23/15 Discontinued 500 Mg Tab Tab, [...] discharge instructions. Plan of Care Discharge Date 05/25/16 Disposition HOME/SELF CARE Condition at Discharge STABLE Instructions/Education Provided DI for Seizure Disorder -- Adult DI for Costochondritis Forms Provided Discharge Form Prescriptions See Medications Section Referrals [facility] - Additional Instructions/Education Take a Baby Aspirin daily Fluids and monitoring of your blood pressure daily and write and show it to your doctor. You must see a family doctor tomorrow at [facility] clinic see your neurologist colton Return to ER any time for any concerns Thanks for allowing us to help you. Functional Status No functional status results. Allergies, Adverse Reactions, Alerts No known allergies. Immunizations No Known History of Immunizations. Vital Signs Vital Reading Collection Date/Time Result Blood Pressure 05/25/16 2:47pm 162/86 Patient Temperature 05/25/16 2:47pm 98.5 Respiratory Rate 05/25/16 2:00pm 18 Pulse Rate 05/25/16 2:47pm 91 Bedside Pulse Oximetry 05/25/16 2:47pm 98 Height 05/25/16 9:24am 180.34 cm Height 05/25/16 9:24am 5 ft 11.00 in Weight 05/25/16 9:24am 108.862 kg Weight 05/25/16 9:24am 240 lb 0.00 oz Body Mass Index 05/25/16 9:24am 33.5 Temperature Source 05/11/16 9:50am Oral Results Laboratory Results Test Name Result Units Flags Reference Collection Result Comments Date/Time Date/Time Sodium Level 135 mmol/L 135-144 05/25/16 05/25/16 [...] ml/min/1.73m eGFR calculation value obtained using the [facility] Quadratic (MCQ) equation. The reportable reference [...] Thrombosis and Antiphospholipid syndrome Prevention of recurrent PR Sixth ACCP Consensus Conference on Antithrombotic Therapy, [...] 11:50am 8:36am <0.3 indicates None Detected Level Carbamazepine 10 ug/mL 4-12 05/11/16 05/11/16 (Tegretol) [...] Thrombosis and Antiphospholipid syndrome Prevention of recurrent PR Sixth ACCP Consensus Conference on Antithrombotic Therapy, [...] Mellitus. Diabetes Care, 20:1183, 1996. Blood Urea 11 mg/dL 8-26 05/11/16 05/11/16 Nitrogen 9:55am 10:36am Creatinine 0.90 mg/dL 0.61-1.24 05/11/16 05/11/16 9:55am 10:36am EGFR Note > 60.0 05/11/16 05/11/16 eGFR (Estimated Glomerular Filtration Rate) 9:55am 10:36am Reference Range: >60 ml/min/1.73m eGFR calculation value obtained using the [facility] Quadratic (MCQ) equation. The reportable reference [...] Arrival/Admit Date Discharge/Depart Date Attending Provider Departed [place] 05/25/16 9:16am 05/25/16 2:47pm QAMAR [facility] Departed [place] 05/11/16 9:43am 05/11/16 2:02pm Prosper Baxter [facility] Departed [place] 03/06/16 9:33pm 03/06/16 11:29pm Jose Angel Christian [facility] Encounter Diagnosis Chest wall pain Seizure
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
--- OUTSIDE RECORDS SUMMARY | 2017-04-07 23:33 | XMS | Continuity of Care Document ---
:1980 Author Organization [facility] Care Team Providers Name Role Phone [facility] Primary Care Physician Unavailable Insurance Providers Payer Name Policy Number Subscriber Name Relationship MEDICARE [id number] RAZIA GLASS SELF/SAME PATIENT Advance Directives Directive Response Recorded Date/Time Advance Directive? N 10/13/16 6:04am Living Will? N 10/13/16 6:04am Health Care Proxy? N 10/13/16 6:04am Healthcare Power of Certified Travel Counselor? N 10/13/16 6:04am Is the patient an Organ Donor? N 10/13/16 6:04am Chief Complaint and Reason for Visit Reason for Visit CHEST PAIN BEGAN 3-4 MONTHS Problems Active Medical Problems Problem Onset Date [...] Active High blood pressure Unknown 10/13/16 Active Medications Current Home Medications Medication Dose Units Route Directions Days/Qty Instructions Start Date ACETAMINOPHEN 1 TAB PO EVERY SIX HOURS 30 PRN SEVERE PAIN 11/22/15 W/CODEINE #3 NEEDED PRN (TYLENOL/CODEINE #3 TAB) 300 MG/30 MG TAB CYCLOBENZAPRINE HCL 10 MG PO AT BEDTIME 14 06/20/16 (CYCLOBENZAPRINE 10 (2099) MG TAB) 10 MG TAB Carbamazepine 900 [...] IBUPROFEN (MOTRIN 800 MG PO EVERY EIGHT 20 08/31/16 800 MG TAB) 800 MG HOURS NEEDED TAB PRN PAIN AND INFLAMMATION Primidone (MYSOLINE 250 MG PO THREE TIME A 05/25/16 250 MG TAB) 250 MG DAY() TAB Primidone (PRIMIDONE 250 MG OR THREE TIME A 250 MG TAB) 250 MG DAY() TAB Primidone (PRIMIDONE 250 MG PO THREE TIME A 30 03/06/16 250 MG TAB) 250 MG DAY() TAB Primidone (PRIMIDONE 250 MG PO THREE TIME A 05/11/16 250 MG TAB) 250 MG DAY() TAB SULFAMETHOXAZOLE 1 TAB PO TWICE A DAY 08/31/16 W/TRIMETHOPRI (899; 2099) For (SMZ-TMP DS 800 CELLULITIS MG/160 MG TAB) 800 MG/160 MG TAB Sucralfate 1 GM PO BEFORE MEALS & 120 10/13/16 (SUCRALFATE 1 GM AT BEDTIME TAB) 1 GM TAB TRAMADOL HCL 50 MG PO EVERY [...] Carbamazepine (Carbatrol 200 Mg TWICE A DAY (0900; 2100) 11/09/14 Discontinued Cap) 200 Mg Cap Cap, [...] discharge instructions. Plan of Care Discharge Date 10/13/16 Disposition HOME/SELF CARE Condition at Discharge STABLE Instructions/Education Provided DI for Gastroesophageal Reflux Disease (GERD) DI for Atypical Chest Pain DI for Esophagitis Forms Provided Discharge Form Prescriptions See Medications Section Referrals [facility] - Additional Instructions/Education General DC Instructions Take all medications as prescribed. Follow up with [facility] Recovery Supervisor as or General Surgeon as directed in 3 to 4 days for EGD/Endoscopy. Seek Medical attention if symptoms not improving or if any new, changing or worsening symptoms. Functional Status No functional status results. Allergies, Adverse Reactions, Alerts No known allergies. Immunizations No Known History of Immunizations. Vital Signs Vital Reading Collection Date/Time Result Blood Pressure 10/13/16 9:43am 150/85 Patient Temperature 10/13/16 9:43am 98.1 Temperature Source 10/13/16 6:02am Tympanic Respiratory Rate 08/31/16 10:11pm 18 Pulse Rate 10/13/16 9:43am 68 Bedside Pulse Oximetry 10/13/16 9:43am 99 Height 10/13/16 6:02am 180.34 cm Height 10/13/16 6:02am 5 ft 11.00 in Weight 10/13/16 6:02am 117.934 kg Weight 10/13/16 6:02am 260 lb 0.00 oz Body Mass Index 10/13/16 6:02am 36.3 Results Laboratory Results Test Name Result Units Flags Reference Collection Result Comments Date/Time Date/Time White Blood 6.5 K/uL 4.8-10.8 10/13/16 10/13/16 Count 6:15am 6:40am Red Blood 4.81 M/uL 4.70-6.00 10/13/16 10/13/16 Count 6:15am 6:40am Hemoglobin 13.6 g/dL 13.5-17.5 10/13/16 10/13/16 6:15am 6:40am Hematocrit 41.0 % L 42.0-52.0 10/13/16 10/13/16 6:15am 6:40am Mean 85.1 fl 80.0-100.0 10/13/16 10/13/16 Corpuscular 6:15am 6:40am Volume Mean 28.2 pg 27.0-31.0 10/13/16 10/13/16 Corpuscular 6:15am 6:40am Hemoglobin Mean 33.1 g/dL 32.0-36.0 10/13/16 10/13/16 Corpuscular 6:15am 6:40am Hgb Concent Diff Red Cell 13.3 % 11.5-14.5 10/13/16 10/13/16 Distribution 6:15am 6:40am Width Platelet 259 K/uL 130-400 10/13/16 10/13/16 Count 6:15am 6:40am Mean Platelet 8.3 fl 7.4-10.4 10/13/16 10/13/16 Volume 6:15am 6:40am Granulocytes 49.3 % L 50.0-75.0 10/13/16 10/13/16 (%) 6:15am 6:40am Lymphocytes % 43.0 % H 20.0-40.0 10/13/16 10/13/16 6:15am 6:40am Monocytes % 7.4 % 0.0-15.0 10/13/16 10/13/16 6:15am 6:40am Eosinophils % 0.0 % 0.0-10.0 10/13/16 10/13/16 6:15am 6:40am Basophils % 0.3 % 0.0-2.0 10/13/16 10/13/16 6:15am 6:40am Granulocytes 3.2 K/uL 1.8-6.4 10/13/16 10/13/16 # 6:15am 6:40am Lymphocytes # 2.8 K/uL 1.2-3.6 10/13/16 10/13/16 6:15am 6:40am Monocytes # 0.5 K/uL 0.3-0.9 10/13/16 10/13/16 6:15am 6:40am Eosinophils # 0.0 K/UL 0.0-0.5 10/13/16 10/13/16 6:15am 6:40am Basophils # 0.0 K/UL 0.0-0.2 10/13/16 10/13/16 6:15am 6:40am Manual NO 10/13/16 10/13/16 Differential 6:15am 6:40am Prothrombin 12.1 SECONDS 10.0-12.9 10/13/16 10/13/16 Time 6:15am 6:43am INR 1.1 10/13/16 10/13/16 International 6:15am 6:43am THE INR IS TO BE USED ONLY [...] Thrombosis and Antiphospholipid syndrome Prevention of recurrent [place] Sixth ACCP Consensus Conference on Antithrombotic Therapy, Chest 2001; 119:Supplement 8-21. Activated 38.7 SECONDS H 25.1-36.5 10/13/16 10/13/16 Partial 6:15am 6:43am Thromboplast Time D-Dimer < 200 ng/mL 0-200 10/13/16 10/13/16 The 99-100% NPV (Negative Predictive Value) for DVT/PE 6:15am 6:59am exclusion is <230 ng/mL as suggested by the maintenance team member and as approved by the FDA. Clinical correlation is needed. Sodium Level 137 mmol/L 135-144 10/13/16 10/13/16 6:15am 7:08am Potassium 4.0 mmol/L 3.5-5.1 10/13/16 10/13/16 Level 6:15am 7:08am Chloride 102 mmol/L 101-111 10/13/16 10/13/16 Level 6:15am 7:08am Carbon 26 mmol/L 22-32 10/13/16 10/13/16 Dioxide Level 6:15am 7:08am Anion Gap 13.0 mmol/L 10-20 10/13/16 10/13/16 6:15am 7:08am Glucose Level 94 mg/dL 70-109 10/13/16 10/13/16 Random glucose > 200 mg /dL in a patient with typical 6:15am 7:08am symptoms of diabetes (polydipsia, polyuria and unexplained weight loss) satisfies ADA criteria for diabetes mellitus if confirmed by repeat testing on another day. Confirmation is unnecessary when acute metabolic decompensation with hyperglycemia is manifested. Reference: Report of the Expert Committee on the Diagnosis and Classification of Diabetes Mellitus. Diabetes Care, 20:1183, 1997. Blood Urea 12 mg/dL 8-26 10/13/16 10/13/16 Nitrogen 6:15am 7:08am Creatinine 1.00 mg/dL 0.61-1.24 10/13/16 10/13/16 6:15am 7:08am EGFR Note 122.0 59.3-175.8 10/13/16 10/13/16 eGFR (Estimated Glomerular Filtration Rate) 6:15am 7:08am eGFR calculation value obtained using the [facility] Quadratic (MCQ) equation. The reportable reference range is recommended to be greater than 60 ml/min/1.73m. This is an estimation of the patient's GFR and clinical correlation is recommended. This eGFR calculation does not account for race. This result may differ from other equations available. Calcium Level 8.7 mg/dL L 8.9-10.3 10/13/16 10/13/16 6:15am 7:08am Albumin 4.1 g/dL 3.5-5.0 10/13/16 10/13/16 6:15am 7:08am Total 0.6 mg/dL 0.3-1.2 10/13/16 10/13/16 Bilirubin 6:15am 7:08am Alkaline 81 IU/L 32-91 10/13/16 10/13/16 Phosphatase 6:15am 7:08am Total Protein 8.5 g/dL H 6.5-8.1 10/13/16 10/13/16 6:15am 7:08am Alanine 37 IU/L 7-55 10/13/16 10/13/16 Aminotransfer 6:15am 7:08am ase (ALT/SGPT) Aspartate 31 IU/L 15-41 10/13/16 10/13/16 Amino Transf 6:15am 7:08am (AST/SGOT) Globulin 4.4 g/dL H 2.3-3.5 10/13/16 10/13/16 6:15am 7:08am Albumin/Globu 0.9 L 1.2-2.2 10/13/16 10/13/16 sha Ratio 6:15am 7:08am Creatine 217 IU/L 49-397 10/13/16 10/13/16 Kinase 6:15am 7:08am B-Type 59 pg/mL 0-100 10/13/16 10/13/16 Natriuretic 6:15am 7:19am Peptide Creatine 1.1 ng/ML 0.6-6.3 10/13/16 10/13/16 Kinase MB 6:15am 7:08am Troponin I < 0.01 ng/mL 0.00-0.03 10/13/16 10/13/16 6:15am 7:08am Troponin I-Interpretation Reference : <0.03 ng/mL NEGATIVE [...] sampling is critical for accurate diagnosis. Myoglobin 17 ug/mL L 17.4-106.0 10/13/16 10/13/16 6:15am 7:08am White Blood 5.7 K/uL 4.8-10.8 07/19/16 07/19/16 [...] 0.0 K/ul 0.0-0.5 07/19/16 07/19/16 2:10pm 2:35pm Basophils # 0.0 K/uL 0.0-0.2 07/19/16 07/19/16 2:10pm 2:35pm Manual NO 07/19/16 07/19/16 Differential 2:10pm 2:35pm Erythrocyte 51 mm/hr H 0-15 07/19/16 07/19/16 Sedimentation 2:10pm 3:02pm Rate Hemoglobin 5.7 % 4.0-6.0 07/19/16 07/19/16 Elevated levels of HbA1c suggest the need for more A1c Percent 2:10pm 2:32pm aggresssive treatment of glycemia. The [place] [employer] recommends that a primary goal [...] Detection Limit=3 Level 2:10pm 8:26am Performed at: [facility] [id number] Youth Officer: Luis M Petty MD, Phone: [phone] D-Dimer 257 ng/mL H 0-200 07/19/16 07/19/16 The 99-100% NPV (Negative Predictive Value) for DVT/PE 1:52pm 3:17pm exclusion is <230 ng/mL as suggested by the maintenance team member and as approved by the FDA. Clinical [...] a fasting specimen. If non-fasting cholesterol > yl=470 mg/dL or HDL is < 40 mg/dL, fasting lipid panel is recommended. Repeat testing recommended prior to treatment. Desirable Levels Cholesterol 246 mg/dL H 0-200 07/19/16 07/19/16 Level 1:52pm 5:04pm Triglycerides 84 mg/dL 10-150 07/19/16 07/19/16 Normal triglycerides: <150 mg/dL Level 1:52pm 5:04pm Borderline-high triglycerides: 150-199 mg/dL High triglycerides: 200-499 mg/dL Very high triglycerides: > jx=926 mg/dL HDL 60 mg/dL 40-130 07/19/16 07/19/16 [...] Risk Factors Reference: ATP III, MARYLU, 285:19, 5299-93, 2000. Sodium Level 138 mmol/L 135-144 07/19/16 [...] ml/min/1.73m eGFR calculation value obtained using the [facility] Quadratic (MCQ) equation. The reportable reference [...] 07/19/16 07/19/16 Stimulating 1:52pm 5:04pm Hormone (TSH) Procedures No Known History of Procedures. Encounters Encounter Location Arrival/Admit Date Discharge/Depart Date Attending Provider Departed [place] 10/13/16 6:01am 10/13/16 9:43am LYDIA, [facility] Departed [place] 08/31/16 8:35pm 08/31/16 10:15pm MARQUES RENDON [facility] Registered [place] 07/19/16 1:29pm CHARLIE ARIAS [facility] Encounter Diagnosis Gastroesophageal reflux disease with esophagitis Atypical chest pain Hypertension
--- OUTSIDE RECORDS SUMMARY | 2017-04-07 23:33 | XMS | Continuity of Care Document ---
:1980 Author Organization [facility] Care Team Providers Name Role Phone [facility] Primary Care Physician Unavailable Insurance Providers Payer Name Policy Number Subscriber Name Relationship MEDICARE [id number] RAZIA GLASS SELF/SAME PATIENT Advance Directives Directive Response Recorded Date/Time Advance Directive? N 11/16/16 11:39am Living Will? N 11/16/16 11:39am Health Care Proxy? N 11/16/16 11:39am Healthcare Power of Hot Man? N 11/16/16 11:39am Is the patient an Organ Donor? N 11/16/16 11:39am Chief Complaint and Reason for Visit Reason for Visit C/O STAPH INFECTION ALL OVER Problems Active Medical Problems Problem Onset Date [...] Unknown 10/13/16 Active Abscess Unknown 11/16/16 Active Medications Current Home Medications Medication Dose Units Route Directions Days/Qty Instructions Start Date ACETAMINOPHEN 1 TAB By Mouth EVERY SIX HOURS 30 PRN SEVERE PAIN 11/22/15 W/CODEINE #3 NEEDED as (TYLENOL/CODEINE #3 needed TAB) 300 MG/30 MG TAB CYCLOBENZAPRINE HCL 10 MG By Mouth AT BEDTIME 14 06/20/16 (CYCLOBENZAPRINE 10 (2100) MG TAB) 10 MG TAB Carbamazepine 900 MG By Mouth TWICE A DAY 42 05/11/16 (Antipsychotic) (899; 2099) (EQUETRO 300 MG CAP) 300 MG CAP Carbamazepine 300 MG By Mouth EVERY DAY @ 30 03/06/16 (CARBAMAZEPINE ER 0900 100 MG CAP) 100 MG CAP Carbamazepine 900 MG By Mouth EVERY DAY @ (CARBATROL 300 MG 0900 CAP) 300 MG CAP Carbamazepine 600 MG By Mouth AT BEDTIME (CARBATROL 300 MG (2099) CAP) 300 MG CAP DIAZEPAM (DIAZEPAM 10 MG By Mouth TWICE [...] TAB as needed for PAIN AND INFLAMMATION Mupirocin 2% Top 1 GM Nasal TWICE A DAY 5 Days DISPENSE QS 11/16/16 OINT (BACTROBAN 2% (899; 2099) OINTMENT) 2 % OIN Primidone (MYSOLINE 250 MG By Mouth THREE TIME A 20 05/25/16 250 MG TAB) 250 MG DAY(;;) TAB Primidone 250 MG Oral THREE TIME A (PRIMIDONE 250 MG DAY(;15;) TAB) 250 MG TAB Primidone 250 MG By Mouth THREE TIME A 30 03/06/16 (PRIMIDONE 250 MG DAY(;;) TAB) 250 MG TAB Primidone 250 MG By Mouth THREE TIME A 21 05/11/16 (PRIMIDONE 250 MG DAY() TAB) 250 MG TAB SULFAMETHOXAZOLE 1 TAB [...] 50 MG By Mouth EVERY SIX HOURS 08/31/16 (TRAMADOL HCL 50 MG NEEDED as TAB) 50 MG TAB needed for SEVERE PAIN TRAMADOL HCL 50 MG By Mouth EVERY FOUR 15 11/16/16 (TRAMADOL HCL 50 MG HOURS NEEDED TAB) 50 MG TAB as needed for PAIN Past Home Medications Medication Directions Ordered Status Acetaminophen W/Codeine #3 EVERY FOUR HOURS as needed for 04/11/14 Discontinued (Tylenol/Codeine #3 Tab) 300 PAIN Mg/30 Mg Tab Tab, 1-2 Tab By Mouth Acetaminophen/Cod 300/30MG Tab EVERY FOUR HOURS NEEDED as 07/28/15 Discontinued (Tylenol #3) 300 Mg/30 Mg Tab needed for PAIN Tab, 1 Tab By Mouth Amoxicillin Trihydrate THREE TIME A DAY() 05/23/15 Discontinued (Amoxicillin 500 Mg) 500 Mg Cap Cap, 500 Mg By Mouth Amoxicillin Trihydrate TWICE A DAY (2099) 10/30/15 Discontinued (Amoxicillin 875 Mg Tab) 875 Mg Tab Tab, 875 Mg By Mouth Carbamazepine (Carbatrol 200 Mg [...] Carbamazepine (Tegretol 200 Mg THREE TIME A DAY(;;) 04/02/14 Discontinued Tab) 200 Mg Tab Tab, 2 Tab Oral Cyclobenzaprine Hcl THREE TIME A DAY(;;) 04/02/14 Discontinued (Cyclobenzaprine 5 Mg Tab) 5 Mg Tab Diazepam (Anticonvulsant) NEEDED 02/03/14 Discontinued (Diastat 20 Mg Rectal Gel) 20 Mg Gel Gel, 1 Gel Rectal Diazepam (Valium) 5 Mg Tab Tab, 5 EVERY EIGHT HOURS as needed 04/11/14 Discontinued Mg By Mouth for CHEST WALL PAIN Ibuprofen (Ibuprofen 800 Mg Tab) EVERY EIGHT HOURS NEEDED as 10/30/15 Discontinued 800 Mg Tab Tab, 800 Mg By Mouth needed for PAIN AND INFLAMMATION Ibuprofen (Motrin 800 Mg Tab) 800 EVERY EIGHT HOURS NEEDED as 10/16/15 Discontinued Mg Tab Tab, 800 Mg By Mouth needed for PAIN AND INFLAMMATION Naproxen (Naproxen Dr 500 [...] discharge instructions. Plan of Care Discharge Date 11/16/16 Disposition HOME/SELF CARE Condition at Discharge STABLE Instructions/Education Provided DI for Skin Abscess Forms Provided Discharge Form Prescriptions See Medications Section Referrals [facility] - Additional Instructions/Education FOLLOW UP WITH PRIMARY CARE PHYSICIAN 1-2 DAYS. Functional Status No functional status results. Allergies, Adverse Reactions, Alerts No known allergies. Immunizations No Known History of Immunizations. Vital Signs Vital Reading Collection Date/Time Result Blood Pressure 11/16/16 11:31am 133/81 Temperature 11/16/16 12:13pm 98.4 F Temperature Source 11/16/16 11:31am Oral Respiratory Rate 08/31/16 10:11pm 18 Pulse Rate 11/16/16 11:31am 90 Bedside Pulse Oximetry 11/16/16 11:31am 98 Height 11/16/16 11:31am 5 ft 11 in Height 11/16/16 11:31am 180.34 cm Weight 11/16/16 11:31am 260 lb Weight 11/16/16 11:31am 117.934 kg Body Mass Index 11/16/16 11:31am 36.3 kg/m2 Results Laboratory Results Test Name Result Units Flags Reference Collection Result Comments Date/Time Date/Time White Blood 6.5 K/uL 4.8-10.8 10/13/16 10/13/16 Count 6:15am 6:40am Red Blood Count 4.81 M/uL 4.70-6.00 10/13/16 10/13/16 6:15am 6:40am Hemoglobin 13.6 g/dL 13.5-17.5 10/13/16 10/13/16 6:15am 6:40am Hematocrit 41.0 % L 42.0-52.0 10/13/16 10/13/16 6:15am 6:40am Mean Corpuscular 85.1 fl 80.0-100.0 10/13/16 10/13/16 Volume 6:15am 6:40am Mean Corpuscular 28.2 pg 27.0-31.0 10/13/16 10/13/16 Hemoglobin 6:15am 6:40am Mean Corpuscular 33.1 g/dL 32.0-36.0 10/13/16 10/13/16 Hgb Concent Diff 6:15am 6:40am Red Cell 13.3 % 11.5-14.5 10/13/16 10/13/16 Distribution 6:15am 6:40am Width Platelet Count 259 K/uL 130-400 10/13/16 10/13/16 6:15am 6:40am Mean Platelet 8.3 fl 7.4-10.4 10/13/16 10/13/16 Volume 6:15am 6:40am Granulocytes (%) 49.3 % L 50.0-75.0 10/13/16 10/13/16 6:15am 6:40am Lymphocytes % 43.0 % H 20.0-40.0 10/13/16 10/13/16 6:15am 6:40am Monocytes % 7.4 % 0.0-15.0 10/13/16 10/13/16 6:15am 6:40am Eosinophils % 0.0 % 0.0-10.0 10/13/16 10/13/16 6:15am 6:40am Basophils % 0.3 % 0.0-2.0 10/13/16 10/13/16 6:15am 6:40am Granulocytes # 3.2 K/uL 1.8-6.4 10/13/16 10/13/16 6:15am 6:40am Lymphocytes # 2.8 K/uL 1.2-3.6 10/13/16 10/13/16 6:15am 6:40am Monocytes # 0.5 K/uL 0.3-0.9 10/13/16 10/13/16 6:15am 6:40am Eosinophils # 0.0 K/UL 0.0-0.5 10/13/16 10/13/16 6:15am 6:40am Basophils # 0.0 K/UL 0.0-0.2 10/13/16 10/13/16 6:15am 6:40am Manual NO 10/13/16 10/13/16 Differential 6:15am 6:40am Prothrombin Time 12.1 SECONDS 10.0-12.9 10/13/16 10/13/16 6:15am 6:43am INR 1.1 10/13/16 10/13/16 International [...] Thrombosis and Antiphospholipid syndrome Prevention of recurrent [place] Sixth ACCP Consensus Conference on Antithrombotic Therapy, Chest 2001; 119:Supplement 8-21. Activated 38.7 SECONDS H 25.1-36.5 10/13/16 10/13/16 Partial 6:15am 6:43am Thromboplast Time D-Dimer < 200 ng/mL 0-200 10/13/16 10/13/16 The 99-100% NPV (Negative Predictive Value) for DVT/PE 6:15am 6:59am exclusion is <230 ng/mL as suggested by the inspector optical instrument and as approved by the FDA. Clinical correlation is needed. Sodium Level 137 mmol/L 135-144 10/13/16 10/13/16 6:15am 7:08am Potassium Level 4.0 mmol/L 3.5-5.1 10/13/16 10/13/16 6:15am 7:08am Chloride Level 102 mmol/L 101-111 10/13/16 10/13/16 6:15am 7:08am Carbon Dioxide 26 mmol/L 22-32 10/13/16 10/13/16 Level 6:15am 7:08am Anion Gap 13.0 mmol/L [...] Care, 20:1183, 1997. Blood Urea 12 mg/dL 8-10/13/16 10/13/16 Nitrogen 6:15am 7:08am Creatinine 1.00 mg/dL 0.61-1.24 10/13/16 10/13/16 6:15am 7:08am EGFR Note 122.0 59.3-175.8 10/13/16 10/13/16 eGFR (Estimated Glomerular Filtration Rate) 6:15am 7:08am eGFR calculation value obtained using the [facility] Quadratic (MCQ) equation. The reportable reference [...] g/dL 3.5-5.0 10/13/16 10/13/16 6:15am 7:08am Total Bilirubin 0.6 mg/dL 0.3-1.2 10/13/16 10/13/16 6:15am 7:08am Alkaline 81 IU/L 32-91 10/13/16 10/13/16 Phosphatase 6:15am 7:08am Total Protein 8.5 g/dL H 6.5-8.1 10/13/16 10/13/16 6:15am 7:08am Alanine 37 IU/L 7-55 10/13/16 10/13/16 Aminotransferase 6:15am 7:08am (ALT/SGPT) Aspartate Amino 31 IU/L 15-41 10/13/16 10/13/16 Transf 6:15am 7:08am (AST/SGOT) Globulin 4.4 g/dL H 2.3-3.5 10/13/16 10/13/16 6:15am 7:08am Albumin/Globulin 0.9 L 1.2-2.2 10/13/16 10/13/16 Ratio 6:15am 7:08am Creatine Kinase 217 IU/L 49-397 10/13/16 10/13/16 6:15am 7:08am B-Type 59 pg/mL 0-100 10/13/16 10/13/16 Natriuretic 6:15am 7:19am Peptide Creatine Kinase 1.1 ng/ML 0.6-6.3 10/13/16 10/13/16 MB 6:15am 7:08am Troponin I < 0.01 [...] ug/mL L 17.4-106.0 10/13/16 10/13/16 6:15am 7:08am Procedures No Known History of Procedures. Encounters Encounter Location Arrival/Admit Date Discharge/Depart Date Attending Provider Departed [place] 11/16/16 11:29am 11/16/16 12:15pm Prosper Baxter [facility] Departed [place] 10/13/16 6:01am 10/13/16 9:43am LYDIA [facility] Departed [place] 08/31/16 8:35pm 08/31/16 10:15pm MARQUES RENDON [facility] Encounter Diagnosis Onset Date Abscess
--- OUTSIDE RECORDS SUMMARY | 2017-04-07 23:33 | XMS | Continuity of Care Document ---
:1980 Author Organization [facility] Care Team Providers Name Role Phone ESTEBAN OSUNA Primary Care Physician Unavailable Insurance Providers Payer Name Policy Number Subscriber Name Relationship MEDICARE [id number] RAZIA GLASS SELF/SAME PATIENT Advance Directives Directive Response Recorded Date/Time Advance Directive? N 01/20/17 6:40pm Living Will? N 01/20/17 6:40pm Health Care Proxy? N 01/20/17 6:40pm Healthcare Power of Road Conductor? N 01/20/17 6:40pm Is the patient an Organ Donor? N 01/20/17 6:40pm Chief Complaint and Reason for Visit Reason for Visit INFECTED FINGER Problems Active Medical Problems Problem Onset Date [...] Days DISPENSE QS 11/16/16 OINT (BACTROBAN 2% (0900; 2100) OINTMENT) 2 % OIN Primidone (MYSOLINE 250 [...] By Mouth Amoxicillin Trihydrate THREE TIME A DAY(;) 05/23/15 [...] 500 Mg Tab) TWICE A DAY (2099) as 05/23/15 Discontinued 500 Mg Tab Tab, 500 Mg By Mouth needed for PAIN AND INFLAMMATION Naproxen 500MG Plain Tab EVERY 12 HOURS () 02/05/15 Discontinued (Naprosyn 500 Mg Tab) 500 Mg Tab Tab, 500 Mg By Mouth Naproxen 500MG Plain Tab TWICE A DAY (2099) 04/11/14 Discontinued (Naprosyn 500 Mg Tab) 500 [...] discharge instructions. Plan of Care Discharge Date 01/20/17 Disposition HOME/SELF CARE Condition at Discharge STABLE Instructions/Education Provided DI for Ingrown Toenail Removal DI for Incision and Drainage of a Skin Abscess Forms Provided Discharge Form Prescriptions See Medications Section Referrals ESTEBAN OSUNA - Additional Instructions/Education [facility] IN 3 DAYS FOR A WOUND CHECK. CHANGE DRESSING ONCE DAILY. DO NOT GET THE DRESSING WET OR DIRTY. CHANGE IT IF IT GETS WET OR DIRTY. COVER DRESSING IF YOU WILL BE IN A DIRTY ENVIRONMENT. TAKE ALL ANTIBIOTICS UNTIL GONE. RETURN TO ED FOR ANY CONCERNING SYMPTOMS OR CONCERNS. Functional Status No functional status results. Allergies, Adverse Reactions, Alerts No known allergies. Immunizations No Known History of Immunizations. Vital Signs Vital Reading Collection Date/Time Result Blood Pressure 01/20/17 8:14pm 165/94 Blood Pressure Source 01/20/17 7:14pm Auto Cuff Temperature 01/20/17 8:14pm 98.4 F Temperature Source 01/20/17 7:14pm Oral Respiratory Rate 01/20/17 7:14pm 20 Pulse Rate 01/20/17 8:14pm 91 Pulse Location 01/20/17 7:14pm Monitor Bedside Pulse Oximetry 01/20/17 8:14pm 96 Height 01/20/17 6:11pm 5 ft 11 in Height 01/20/17 6:11pm 180.34 cm Weight 01/20/17 6:11pm 260 lb Weight 01/20/17 6:11pm 117.934 kg Body Mass Index 01/20/17 6:11pm 36.3 kg/m2 Results No known relevant diagnostic tests, laboratory data and/or discharge summary. Procedures No Known History of Procedures. Encounters Encounter Location Arrival/Admit Date Discharge/Depart Date Attending Provider Departed [place] 01/20/17 6:08pm 01/20/17 6:15pm Prosper Baxter MD [facility] Departed [place] 11/16/16 11:29am 11/16/16 12:15pm Prosper Baxter MD [facility]
== END 2017-04-07 12:31 | disposition home or self-care (01) ==
LOC: ERS 18:29 → SURG A 21:20
PROVIDERS: ADMIT Surgery; ATTEND Surgery
DX: S27.892A Contusion of other specified intrathoracic organs, initial encounter (principal); I10 Essential (primary) hypertension; G40.909 Epilepsy, unspecified, not intractable, without status epilepticus; V49.50XA Passenger injured in collision with unspecified motor vehicles in traffic accident, initial encounter; Z79.899 Other long term (current) drug therapy; Z96.89 Presence of other specified functional implants
CPT/HCPCS: 71010; 80053; 82553; 83605; 84484; 85025 ×2; 85610; 85730; 93005; 97139; 99285; G0378; 36415; G0390; J2405